=== PATIENT | male | born 1950 | race Caucasian/White ===

== ENCOUNTER 2019-05-25 09:54 | Inpatient (IN) ==
[2019-05-25] MEDS ORDERED: Nitroglycerin 0.4 MG TAB.SUBL SL PRN (10:11)
[2019-05-25] MEDS ORDERED: Aspirin 81 MG TAB.CHEW PO ONE (10:11)
--- NOTE | 2019-05-25 10:29 | Emergency Department Note ---
Disposition Clinical Impression: Atypical chest pain Acute pancreatitis Qualifiers: Pancreatitis type: biliary Acute pancreatitis complication: unspecified Qualified Code(s): K85.10 - Biliary acute pancreatitis without necrosis or infection Cholelithiasis NOS Qualifiers: Cholelithiasis location: gallbladder Cholecystitis presence: without cholecystitis Disposition: Admitted As Inpatient Condition: Good Time of Disposition: 13:00 Chest Pain HPI - General Chief Complaint: ED Chest Pain Stated Complaint: CP Time Seen by Provider: 05/25/19 10:05 Source: patient Limitations: no limitations - History of Present Illness HPI Narrative: This is a 68-year-old gentleman who presents to the [facility] chest pain center this morning at 4:30 AM. Patient describes subxiphoid/midsternal chest tightness, radiating to his back. Associated symptoms include nausea and dyspnea. He denies abdominal pain per se, even though he points to subxiphoid area. He denies any vomiting. The patient states that he has had symptoms intermittently for the past 3 days. Symptoms resolved yesterday and then recurred this morning around 4:30. There are no obvious aggravating or relieving factors. Duration: intermittent, gradually worsening Onset: during rest Severity scale (1-10): 10 Pain Radiation: back Improves with: nothing Worsens with: nothing Associated symptoms: Reports: nausea, dyspnea - Related Data Home Medications Medication Instructions Recorded Confirmed hydroCHLOROthiazide 25 mg PO DAILY 11/14/16 05/25/19 [Hydrochlorothiazide] Aspirin [Lo-Dose Aspirin EC] 81 mg PO DAILY 05/25/19 05/25/19 Tamsulosin HCl [Flomax] 0.4 mg PO DAILY 05/25/19 05/25/19 Turmeric 400 mg PO DAILY 05/25/19 05/25/19 Previous Rx's Medication Instructions Recorded EPINEPHrine [Epipen] 0.3 mg IM ONCE PRN #1 kit 02/24/17 Allergies Allergy/AdvReac Type Severity Reaction Status Date / Time No Known Allergies Allergy Verified 05/25/19 11:50 Constitutional: Denies: fever, chills, weakness, weight change Eyes: Denies: eye pain, eye discharge, vision change ENT ED: Denies: ear pain, throat pain, dental pain, hearing loss, epistaxis, congestion, dysphagia Cardiovascular: Reports: chest pain. Denies: palpitations, dyspnea on exertion, edema, syncope Respiratory: Denies: cough, dyspnea, wheezes, hemoptysis, stridor Gastrointestinal: Reports: abdominal pain (Subxiphoid pain), nausea. Denies: vomiting, diarrhea, constipation, hematemesis, melena, hematochezia Genitourinary: Denies: urgency, dysuria, frequency, hematuria Musculoskeletal: Denies: back pain, neck pain, arthralgia, myalgia Integumentary: Denies: rash, abrasion, lesions Neurological: Denies: headache, weakness, numbness, paresthesias, confusion, abnormal gait, vertigo Psychiatric: Denies: anxiety, depression, suicidal thoughts, homicidal thoughts, auditory hallucinations, visual hallucinations Endocrine: Denies: fatigue Hematological/Lymphatic: Denies: easy bleeding, easy bruising Allergic/Immunologic: Denies: facial swelling, urticaria Chest Pain PMH - Past Medical History Medical history: Reports: hypertension Surgical history: Reports: non-contributory - Social History Smoking Status: Never smoker Alcohol use: Reports: none Drug use: Reports: none Physical Exam - General Limitations: no limitations General appearance: alert, in distress - Head Head exam: atraumatic, normocephalic, normal inspection - Eye Eye exam: Present: normal appearance, PERRL, EOMI - Expanded Eye Exam Pupils: Left: reactive - ENT ENT exam: normal exam, normal oropharynx, mucous membranes moist - Expanded ENT Exam External ear exam: Present: normal external inspection Mouth exam: Present: normal external inspection Teeth exam: Present: normal inspection Throat exam: Present: normal inspection - Neck Neck exam: Present: normal inspection, full ROM, trachea midline - Chest Chest inspection: Present: normal inspection, symmetric chest wall rise, other (Slight Midsternal/subxiphoid tenderness on exam.) - Respiratory Respiratory exam: Present: normal lung sounds bilaterally - Cardiovascular Cardiovascular exam: Present: regular rate, normal rhythm, normal heart sounds - Abdominal Exam Abdominal exam: Present: soft, Non-Tender, tenderness. Absent: distention, guarding, rebound, rigidity Abdominal tenderness: Present: mild (There is slight subxiphoid tenderness. No guarding or rebound.) - Extremities Exam Extremities exam: Present: normal inspection, full ROM. Absent: tenderness, ped al edema - Expanded Upper Extremity Exam Shoulder exam: Present: normal inspection, full ROM Arm exam: Present: normal inspection, full ROM Elbow exam: Present: normal inspection, full ROM Forearm/Wrist exam: Present: normal inspection, full ROM Hand exam: Present: normal inspection, full ROM Vascular exam: Normal: capillary refill, radial pulse - Expanded Lower Extremity Exam Hip/Pelvis exam: Present: normal inspection, full ROM Upper leg exam: Present: normal inspection, full ROM Knee exam: Present: normal inspection, full ROM Lower leg exam: Present: normal inspection, full ROM Ankle exam: Present: normal inspection, full ROM Foot/toe exam: Present: normal inspection, full ROM Neurovascular/Tendon exam: Absent: motor deficit, sensory deficit, tendon deficit - Back Exam Back exam: Present: normal inspection, full ROM. Absent: tenderness - Neurological Exam Neurological exam: Present: alert, oriented X3 - Expanded Neurological Exam Patient oriented to: Present: person, place, time Coma Scale Eye Opening: Spontaneous Coma Scale Motor Response: Obeys Commands Coma Scale Verbal Response: Oriented Coma Scale Total: 15 - Psychiatric Psychiatric exam: Present: normal affect, normal mood - Skin Skin exam: Present: warm, dry, intact, normal color Course Vital Signs Temperature 98.4 F 05/25/19 10:00 Pulse Rate 90 05/25/19 10:00 Respiratory Rate 22 05/25/19 10:00 Blood Pressure 192/115 05/25/19 10:00 O2 Sat by Pulse Oximetry 98 05/25/19 10:00 Temperature 98.4 F 05/25/19 10:00 Pulse Rate 106 05/25/19 11:14 Respiratory Rate 28 05/25/19 11:14 Blood Pressure 118/81 05/25/19 11:14 O2 Sat by Pulse Oximetry 97 05/25/19 11:14 Oxygen Delivery Oxygen Delivery Room Air Chest Pain - MDM Narrative Medical decision making narrative: Differential diagnoses includes atypical chest through the container syndrome from inferior ischemia versus pancreatitis versus bowel obstruction versus gallbladder disease vs gastritis. AAA or dissection is less likely. Blood pressures taken in both arms essentially the same. We get abdominal series. Recheck basic labs including cardiac enzymes. EKG shows normal sinus rhythm at 89 bpm. Normal axis. Normal intervals. No acute injury pattern. 1037 Patient reevaluated. Pain is unchanged with nitroglycerin. Actually got slight ly worse. We will give morphine and the GI cocktail. 1105 Patient's complains of significant pain. He is now holding his epigastrium. Repeat EKG shows no acute injury pattern. X-rays are not impressive. I will get a CTA to rule out dissection versus AAA given the fact that this patient continues to have significant pain. He is screaming in the room. Will give Dilaudid. 1120 The patient's labs are reviewed. Lab is consistent with acute pancreatitis. LFTs are also elevated. I now have the reason for his pain. Consequent, I do not think this patient has a dissection or AAA. We will cancel CTA. Will get ultrasound of his gallbladder due to pancreatitis and elevated LFTs. We will keep him nothing by mouth. 1305 Patient's care discussed with the hospitalist. We will admit. Ultrasound is consistent with cholelithiasis but no evidence of cholecystitis. Patient is doing better. - Lab Data Result diagrams: 05/25/19 10:10 05/25/19 10:10 Lab Results 05/25/19 05/25/19 05/25/19 Range/Units 10:10 10:10 10:10 WBC 8.2 (4.3-11.1) K/mcL RBC 5.76 H (4.19-5.50) M/mcL Hgb 16.7 (12.9-16.9) g/dL Hct 49.5 (37.5-50.1) % MCV 85.9 (83.0-100.0) fL MCH 29.0 (28.0-33.3) pg MCHC 33.7 (31.6-35.5) g/dL RDW 13.7 (11.5-14.5) % Plt Count 102 L (140-400) K/mcL MPV 11.6 (9.4-12.4) fL Immature Gran % 0.2 (0-4) % Seg Neutrophils % 77.4 % Lymphocytes % 15.2 % Monocytes % 5.8 % Eosinophils % 0.9 % Basophils % 0.5 % Neutrophils # 6.3 (1.6-8.9) K/mcL Lymphocytes # 1.2 (0.6-4.6) K/mcL Monocytes # 0.5 (0.0-1.3) K/mcL Eosinophils # 0.1 (0.0-0.6) K/mcL Basophils # 0.0 (0.0-0.2) K/mcL PT 12.6 H (9.4-12.1) Seconds INR 1.1 APTT 28.6 (26.0-36.0) Seconds Sodium 139 (136-145) mEq/L Potassium 3.5 (3.5-5.1) mEq/L Chloride 102 (98-107) mEq/L Carbon Dioxide 26 (23-29) mEq/L BUN 18 (8-23) mg/dL Creatinine 1.35 H (0.70-1.30) mg/dL Est GFR ( Amer) > 60 (> 60) Est GFR (Non-Af Amer) 53 L (> 60) BUN/Creatinine Ratio 13 (6-26) Glucose 168 H (70-105) mg/dL Calculated Osmolality 294 (280-300) Calcium 9.3 (8.6-10.3) mg/dL Total Bilirubin 3.8 H (0.3-1.0) mg/dL Direct Bilirubin 2.5 H (0.0-0.2) mg/dL Indirect Bilirubin 1.3 H (0.0-1.2) mg/dL AST 238 H (13-39) Units/L ALT 181 H (7-52) Units/L Alkaline Phosphatase 84 (34-104) Units/L Troponin I < 0.03 (< 0.04) ng/mL Serum Total Protein 7.4 (6.4-8.9) g/dL Albumin 4.5 (3.5-5.7) g/dL Globulin 2.9 (2.4-3.5) g/dL Albumin/Globulin Ratio 1.6 (1.1-2.2) Lipase 1369 H (11-82) Units/L Heart Score - Score History: Slightly Suspicious EKG: Normal Age: Greater than 65 Risk Factors: 1-2 risk factors Troponin: Less than normal limit HEART Score Total: 3 Critical Care Time Critical Care Time: Yes Total Critical Care Time: 45 Attestation: Critical care time done for management and evaluation of this patient ruling out life-threatening conditions
[2019-05-25 10:33] LABS: INR 1.1; Prothrombin Time 12.6 Seconds (9.4-12.1)
[2019-05-25 10:36] LABS: Activated Partial Thrombo Time 28.6 Seconds (26.0-36.0)
[2019-05-25] MEDS ORDERED: Morphine Sulfate 2 MG/ML SYRINGE IVP ONE ×3 (10:37→19:12)
[2019-05-25] MEDS ORDERED: GI Cocktail 40 ML EACH PO ONE (10:37)
[2019-05-25 10:39] LABS: Basophils % 0.5 %; Eosinophils # 0.1 K/mcL (0.0-0.6); Eosinophils % 0.9 %; Hematocrit 49.5 % (37.5-50.1); Hemoglobin 16.7 g/dL (12.9-16.9); Immature Granulocytes % 0.2 % (0-4); Lymphocytes # 1.2 K/mcL (0.6-4.6); Lymphocytes % 15.2 %; Mean Corpuscular HGB Conc 33.7 g/dL (31.6-35.5); Mean Corpuscular Volume 85.9 fL (83.0-100.0); Mean Platelet Volume 11.6 fL (9.4-12.4); Monocytes # 0.5 K/mcL (0.0-1.3); Monocytes % 5.8 %; Neutrophils # 6.3 K/mcL (1.6-8.9); Platelet Count 102 K/mcL (140-400); Red Blood Count 5.76 M/mcL (4.19-5.50); Red Cell Distribution Width 13.7 % (11.5-14.5); Segmented Neutrophils % 77.4 %; White Blood Count 8.2 K/mcL (4.3-11.1)
[2019-05-25] MEDS ORDERED: Isovue-370 500 ML BOTTLE IVP ONE (11:04)
[2019-05-25] MEDS ORDERED: *HR* HYDROmorphone (PF) 1 MG/ML SYRINGE IVP ONE ×3 (11:07→19:40)
[2019-05-25 11:12] LABS: Alanine Aminotransferase 181 Units/L (7-52); Albumin 4.5 g/dL (3.5-5.7); Albumin/Globulin Ratio 1.6 (1.1-2.2); Alkaline Phosphatase 84 Units/L (34-104); Aspartate Amino Transferase 238 Units/L (13-39); BUN/Creatinine Ratio 13 (6-26); Bilirubin,Direct 2.5 mg/dL (0.0-0.2); Bilirubin,Indirect 1.3 mg/dL (0.0-1.2); Bilirubin,Total 3.8 mg/dL (0.3-1.0); Blood Urea Nitrogen 18 mg/dL (8-23); Calcium 9.3 mg/dL (8.6-10.3); Carbon Dioxide 26 mEq/L (23-29); Chloride 102 mEq/L (98-107); Globulin 2.9 g/dL (2.4-3.5); Glucose 168 mg/dL (70-105); Lipase 1369 Units/L (11-82); Osmolality,Calculated 294 (280-300); Potassium 3.5 mEq/L (3.5-5.1); Sodium 139 mEq/L (136-145); Total Protein 7.4 g/dL (6.4-8.9); Troponin I < 0.03 ng/mL (< 0.04); eGFR For African Americans > 60 (> 60); eGFR For Non-African Americans 53 (> 60)
[2019-05-25] MEDS ORDERED: 0.9 % Sodium Chloride 1,000 ML IVC ONE (11:23)
[2019-05-25] MEDS: 0.9 % Sodium Chloride 1,000 ML IVC SCH ×2 (13:48→23:59)
[2019-05-25] MEDS ORDERED: Naloxone 0.4 MG/ML INJ IVP PRN (14:33)
--- NOTE | 2019-05-25 14:35 | Internal Med History&Physical ---
Date of Encounter: 05/25/19 Time of Encounter: 14:15 Internal Medicine - H&P: HPI Chief complaint: abdominal pain Admitted From: Emergency Dept Plans for Post Hospital Care: Home History of present illness: Mr. Lyons is a 68 year old male with hx of HTN presented to ED with abdominal pain. He has been found to have gallstone pancreatitis Mr Lyons began to have abdominal discomfort on Tuesday. Symptoms improved and then recurred worse this AM. He came to ED and has been found to have gallstone pancreatitis. He has no prior hx. Denies alcohol use. No nausea or vomiting. At this time he is having significant pain in his abdomen. MRCP pending. Past Med Surg Social Fam HX - Past Medical History Medical history: hypertension - Past Surgical History Surgical History: non-contributory - Social History Smoking Status: Never smoker Smokeless Tobacco Status: No Alcohol use: none Drug use: none - Family History Mother Hx Family Autoimmune Disorders: (lymphoma) Internal Medicine - H&P: Meds hydroCHLOROthiazide [Hydrochlorothiazide] 25 mg PO DAILY 11/14/16 [History] EPINEPHrine [Epipen] 0.3 mg IM ONCE PRN #1 kit 02/24/17 [Rx] Aspirin [Lo-Dose Aspirin EC] 81 mg PO DAILY 05/25/19 [History] Tamsulosin HCl [Flomax] 0.4 mg PO DAILY 05/25/19 [History] Turmeric 400 mg PO DAILY 05/25/19 [History] Allergy/AdvReac Type Severity Reaction Status Date / Time No Known Allergies Allergy Verified 05/25/19 11:50 All Systems PM: A 10-system review of systems was performed and is negative for pertinent findings except as documented above in the HPI. - Constitutional Constitutional: no fatigue, no lethargy - EENT Eyes: no diplopia, no loss of vision Nose, mouth and throat: dry mouth, no sinus pain - Cardiovascular Cardiovascular ROS IM: chest pain, no dyspnea, no dyspnea on exertion - Respiratory Respiratory: no dyspnea, no dyspnea on exertion, no wheezing - Gastrointestinal Gastrointestinal: abdominal pain, no nausea, no vomiting - Genitourinary Genitourinary ROS male: no dysuria, no urinary frequency - Musculoskeletal Musculoskeletal ROS IM: no arthralgias, no muscle weakness - Integumentary Integumentary IM: no rash - Neurological Neurological ROS: no confusion, no tingling - Endocrine Endocrine IM: no excessive sweating - Hematologic/Lymphatic Hematologic/Lymphatic: no easy bleeding - Allergic/Immunologic Allergic/Immunologic: no itchy eyes - Constitutional Vitals: Temp Pulse Resp BP Pulse Ox 98.4 F 106 28 118/81 97 05/25/19 10:00 05/25/19 11:14 05/25/19 11:14 05/25/19 11:14 05/25/19 11:14 General appearance: Present: A&O X 3 Exam: See below - Head Head exam: Present: atraumatic, normocephalic - Eye Eye exam: Present: EOMI, conjuntiva pink - ENT ENT exam: Present: mucous membranes dry - Neck Neck exam general surgery: Present: supple - Respiratory Respiratory exam: Present: CTAB. Absent: rales, rhonchi, wheezes - Cardiovascular Cardiovascular exam: Present: tachycardia - GI/Abdominal GI/Abdominal exam: Present: soft, tenderness - Extremities Exam Extremities exam: Present: warm. Absent: pedal edema, tenderness - Neurological Exam Neurological exam: Present: alert, oriented X3, no focal deficits - Skin Skin exam: Present: dry, warm Internal Med - H&P Results - Labs CBC & Chem 7: 05/25/19 10:10 05/25/19 10:10 Labs: Short CBC 05/25/19 Range/Units 10:10 WBC 8.2 (4.3-11.1) K/mcL Hgb 16.7 (12.9-16.9) g/dL Hct 49.5 (37.5-50.1) % Plt Count 102 L (140-400) K/mcL Neutrophils # 6.3 (1.6-8.9) K/mcL BMP 05/25/19 10:10 Sodium 139 Potassium 3.5 Chloride 102 Carbon Dioxide 26 BUN 18 Creatinine 1.35 H Glucose 168 H Calcium 9.3 Cardiac Enzymes 05/25/19 Range/Units 10:10 Troponin I < 0.03 (< 0.04) ng/mL Liver Function 05/25/19 Range/Units 10:10 Total Bilirubin 3.8 H (0.3-1.0) mg/dL Direct Bilirubin 2.5 H (0.0-0.2) mg/dL AST 238 H (13-39) Units/L ALT 181 H (7-52) Units/L Alkaline Phosphatase 84 (34-104) Units/L Albumin 4.5 (3.5-5.7) g/dL - Impressions ITS Impressions Chest X-Ray 05/25/19 10:11 IMPRESSION: Minimal bibasilar atelectasis. Small infiltrate cannot be excluded. No bowel obstruction seen. D/ / 05/25/2019 11:16:43 Joni De La Cruz MD / asia Interpreting Provider: Joni De La Cruz MD Abdomen X-Ray 05/25/19 10:13 IMPRESSION: Minimal bibasilar atelectasis. Small infiltrate cannot be excluded. No bowel obstruction seen. D/ / 05/25/2019 11:16:43 Joni De La Cruz MD / asia Interpreting Provider: Joni De La Cruz MD Gallbladder Ultrasound 05/25/19 11:22 IMPRESSION: Fatty liver. Gallstones and sludge within the gallbladder. D/ / 05/25/2019 12:27:12 Joni De La Cruz MD / asia Interpreting Provider: Joni De La Cruz MD - Assessment and Plan (1) Acute gallstone pancreatitis Current Visit: Yes Status: Acute Assessment and plan: Pt presented with abdominal pain and found to have gallstone pancreatitis. Place in observation. IV pain control. MRCP to r/o CBD obstruction. Will plan surgery eval if does not need ERCP. IV fluids. NPO (2) Cholelithiasis NOS Current Visit: Yes Status: Chronic Assessment and plan: Plan surgical eval Qualifiers: Cholelithiasis location: gallbladder Cholecystitis presence: without cholecystitis Biliary obstruction: without biliary obstruction Qualified Code(s): K80.20 - Calculus of gallbladder without cholecystitis without obstruction (3) Hypertension Current Visit: Yes Status: Chronic Assessment and plan: Hold HCTZ for now. Qualifiers: Hypertension type: essential hypertension Qualified Code(s): I10 - Essential (primary) hypertension - Time Spent With Patient Total time spent is greater than 50% in coordination of care (as documented) at patient's floor/unit and/or counseling patient:
[2019-05-25] MEDS: Ondansetron 4 MG/2 ML VIAL IVP PRN (15:30)
[2019-05-25] MEDS ORDERED: Ketorolac 30 MG/ML VIAL IVP ONE (18:03)
[2019-05-25] MEDS ORDERED: Morphine PCA 30 MG/ 30 ML 30 ML PCA.VIAL IVC PRN (19:12)
[2019-05-25] MEDS ORDERED: Ketorolac 30 MG/ML VIAL IVP PRN (20:06)
[2019-05-25] MEDS: Morphine PCA 30 MG/ 30 ML 30 ML PCA.VIAL IVC PRN (20:28)
[2019-05-25] MEDS ORDERED: *HR* Promethazine 25 MG/ML VIAL IVP PRN (21:02)
[2019-05-25] MEDS ORDERED: *HR* Metoprolol 5 MG/5 ML VIAL IVP ONE (22:58)
[2019-05-26] MEDS: Ondansetron 4 MG/2 ML VIAL IVP PRN (00:01)
[2019-05-26] MEDS ORDERED: NIFEdipine 10 MG CAPSULE PO ONE (01:18)
[2019-05-26 07:14] LABS: Hematocrit 49.8 % (37.5-50.1); Hemoglobin 16.5 g/dL (12.9-16.9); Mean Corpuscular HGB Conc 33.1 g/dL (31.6-35.5); Mean Corpuscular Hemoglobin 28.5 pg (28.0-33.3); Mean Corpuscular Volume 86.2 fL (83.0-100.0); Mean Platelet Volume 11.1 fL (9.4-12.4); Monocytes # 0.7 K/mcL (0.0-1.3); Neutrophils # 9.9 K/mcL (1.6-8.9); Platelet Count 110 K/mcL (140-400); Red Blood Count 5.78 M/mcL (4.19-5.50); Red Cell Distribution Width 14.5 % (11.5-14.5); White Blood Count 11.2 K/mcL (4.3-11.1)
[2019-05-26 07:27] LABS: Albumin/Globulin Ratio 1.5 (1.1-2.2); Bilirubin,Total 8.3 mg/dL (0.3-1.0); Calcium 8.3 mg/dL (8.6-10.3); Globulin 2.6 g/dL (2.4-3.5); Magnesium 2.1 mg/dL (1.6-2.6); Potassium 4.1 mEq/L (3.5-5.1); Total Protein 6.6 g/dL (6.4-8.9)
[2019-05-26 08:47] LABS: Lymphocytes # 0.7 K/mcL (0.6-4.6)
[2019-05-26 08:49] LABS: Burr Cells 1+ (Not Present); Platelet Estimate Decreased (Normal); Smudge Cells Present (Not Present)
[2019-05-26] MEDS: 0.9 % Sodium Chloride 1,000 ML IVC SCH ×4 (08:59→22:40)
--- NOTE | 2019-05-26 09:32 | Internal Med Progress Note ---
Hospitalist Progress Note - Encounter Date of Encounter: 05/26/19 Time of Encounter: 09:19 - Subjective Interval History: Mr Lyons is currently admitted for acute gallstone pancreatitis. He remains high risk at this time. Mr Lyons continues to have a lot of pain. He is having difficulty taking a deep breath and his oxygen saturation has decreased. No fever. at bedside and said that he seemed better with [employer] last night. Oxygen did decrease though. Not urinating as much and it is very dark. - Exam Vitals: Temp Pulse Resp BP Pulse Ox 98.2 F 119 16 145/94 92 05/26/19 08:18 05/26/19 08:18 05/26/19 08:18 05/26/19 08:18 05/26/19 08:18 Exam: General: Alert and oriented. Continues uncomfortable due to pain. Skin: Normal color, no rash, H: Normocephalic. EENT: EOMI, Mucus membranes dry. Cardiovascular: Normal S1 & S2, tachycardic and regular. No murmur. Lungs: Decreased breath sounds. No wheeze. Abdomen: Firm. Bowel sounds heard. Tender in epigastric area. Extremities: No deformity, no edema Neurological: Normal cognition and motor skills. Pulses: radial pulses normal +2. Rest of the physical exam is non contributory - Assessment and Plan (1) Acute gallstone pancreatitis Current Visit: Yes Status: Acute Assessment and Plan: Pt presented with abdominal pain and found to have gallstone pancreatitis. Continues to have significant pain. LFTs about the same - bilirubin much higher today. CT abd/pelvis done. Continue NPO, fluids, pain control (2) Cholelithiasis NOS Current Visit: Yes Status: Chronic Assessment and Plan: Surgery consulted today. (3) Hypertension Current Visit: Yes Status: Chronic Assessment and Plan: Uncontrolled. Start nitropaste and PRN hydralazine. - Time Spent with Patient Total time spent is greater than 50% in coordination of care (as documented) at patient's floor/unit and/or counseling patient: Internal Medicine: Result - Labs CBC & Chem 7: 05/26/19 06:25 05/26/19 06:25 Labs: Short CBC 05/25/19 05/26/19 Range/Units 10:10 06:25 WBC 8.2 11.2 H (4.3-11.1) K/mcL Hgb 16.7 16.5 (12.9-16.9) g/dL Hct 49.5 49.8 (37.5-50.1) % Plt Count 102 L 110 L (140-400) K/mcL Neutrophils # 6.3 9.9 H (1.6-8.9) K/mcL BMP 05/25/19 05/26/19 10:10 06:25 Sodium 139 140 Potassium 3.5 4.1 Chloride 102 102 Carbon Dioxide 26 26 BUN 18 31 H Creatinine 1.35 H 1.64 H Glucose 168 H 170 H Calcium 9.3 8.3 L Cardiac Enzymes 05/25/19 Range/Units 10:10 Troponin I < 0.03 (< 0.04) ng/mL Liver Function 05/25/19 05/26/19 Range/Units 10:10 06:25 Total Bilirubin 3.8 H 8.3 H (0.3-1.0) mg/dL Direct Bilirubin 2.5 H (0.0-0.2) mg/dL AST 238 H 133 H (13-39) Units/L ALT 181 H 200 H (7-52) Units/L Alkaline Phosphatase 84 83 (34-104) Units/L Albumin 4.5 4.0 (3.5-5.7) g/dL - ABG Interpretation ABG results: PT/INR, D-dimer PT 12.6 Seconds (9.4-12.1) H 05/25/19 10:10 - Impressions Impressions Chest X-Ray 05/25/19 10:11 IMPRESSION: Minimal bibasilar atelectasis. Small infiltrate cannot be excluded. No bowel obstruction seen. D/ / 05/25/2019 11:16:43 Joni De La Cruz MD / asia Interpreting Provider: Joni De La Cruz MD Abdomen X-Ray 05/25/19 10:13 IMPRESSION: Minimal bibasilar atelectasis. Small infiltrate cannot be excluded. No bowel obstruction seen. D/ / 05/25/2019 11:16:43 Joni De La Cruz MD / asia Interpreting Provider: Joni De La Cruz MD Gallbladder Ultrasound 05/25/19 11:22 IMPRESSION: Fatty liver. Gallstones and sludge within the gallbladder. D/ / 05/25/2019 12:27:12 Joni De La Cruz MD / asia Interpreting Provider: Joni De La Cruz MD Abdomen MRI 05/25/19 14:30 IMPRESSION: 1. Extensive peripancreatic edema and free fluid in the pararenal spaces consistent with the history of acute pancreatitis. No discrete localized peripancreatic fluid collection. Evaluation for pancreatic necrosis is not accomplished in the absence of IV contrast. 2. Patchy hepatic steatosis. 3. No intra or extrahepatic biliary ductal dilatation. There is layering sludge in multiple tiny gallstones noted in the gallbladder. A tiny filling defect in the distal CBD could potentially be a tiny stone but there is some limitation of evaluation due to motion degradation of the MRCP images. D/ / Eris Markham MD / Eris Markham MD Interpreting Provider: Eris Markham MD Consult Discharge Plan - Plan Referrals: Jay Akbar DO [Primary Care Provider] - (2) Cholelithiasis NOS Qualifiers: Cholelithiasis location: gallbladder Cholecystitis presence: without cholecystitis Biliary obstruction: without biliary obstruction Qualified Code(s): K80.20 - Calculus of gallbladder without cholecystitis without obstruction (3) Hypertension Qualifiers: Hypertension type: essential hypertension Qualified Code(s): I10 - Essential (primary) hypertension
[2019-05-26] MEDS: Nitroglycerin 1 INCH/GM PACKET TP SCH ×3 (10:03→15:58)
[2019-05-26] MEDS: Morphine PCA 30 MG/ 30 ML 30 ML PCA.VIAL IVC PRN (12:23)
--- NOTE | 2019-05-26 12:56 | AcuteCare Surgery Consult Note ---
Date of Encounter: 05/26/19 Time of Encounter: 12:47 Assessment and Plan (1) Acute gallstone pancreatitis Current Visit: Yes Status: Acute 68M with gallstone pancreatitis; HDS likely with choledocholithiasis as t bili is extremely elevated trend t bili activity a tolerated NPO, bowel rest IVF CT scan to eval for possible necrosis will cont to follow needs ERCP or transfer to [facility] History of Present Illness Consult date: 05/26/19 Reason for consult: abdominal pain History of present illness: 68M PMH significant for HTN, BPH who presents with gallstone pancreatitis. The patient has had 2-3 days of worsening abdominal pain localized to the epigastric region. The pain is worse when leaning forward and better with reclined. No associated nausea, vomiting, but the patient does report PO intolerance/early satiety. He is having normal bowel function, no fevers, chills, chest pain, nor shortness of breath. He does have an alcohol history, but it is not extensive nor does he recall any significant drinking prior to the abdominal pain. The patient does report that eating his cheese dip was the precipitating event to his abdominal pain. the pain rates an 8/10. Because his symptoms continued to get worse he presented for evaluation. Upon arrival an MRI was obtained which demonstrated edema of the pancreas. That in combination with an elevated lipase was all consistent with acute pancreatitis. Of note she was found to have gallstones, but no evidence of acute cholecystitis. Past Med Surg Social Fam HX - Past Medical History Medical history: hypertension - Past Surgical History Surgical History: non-contributory, herniorrhaphy - Social History Smoking Status: Never smoker Smokeless Tobacco Status: No Alcohol use: occasionally Drug use: none - Family History Mother Hx Family Autoimmune Disorders: (lymphoma) Medications and Allergies hydroCHLOROthiazide [Hydrochlorothiazide] 25 mg PO DAILY 11/14/16 [History] EPINEPHrine [Epipen] 0.3 mg IM ONCE PRN #1 kit 02/24/17 [Rx] Aspirin [Lo-Dose Aspirin EC] 81 mg PO DAILY 05/25/19 [History] Tamsulosin HCl [Flomax] 0.4 mg PO DAILY 05/25/19 [History] Turmeric 400 mg PO DAILY 05/25/19 [History] Allergy/AdvReac Type Severity Reaction Status Date / Time No Known Allergies Allergy Verified 05/25/19 11:50 Review of Systems All systems PM: 12 point ROS negative besides HPI findings General Surgery Exam Initial Vital Signs Temp Pulse Resp BP Pulse Ox 98.4 F 90 22 192/115 98 05/25/19 10:00 05/25/19 10:00 05/25/19 10:00 05/25/19 10:00 05/25/19 10:00 - General physical appearance no distress - Eyes other (scleral icterus) - Respiratory normal expansion, normal respiratory effort - Cardiovascular Cardiovascular exam: Present: RRR - Abdomen Abdomen general surgery: Present: soft, tender (epigastric region) - Integumentary Integumentary general surgery: Present: warm and dry, no abnormal pigmentation - Neurologic Present: CN 2-12 grossly intact - Musculoskeletal Present: normal posture - Psychiatric Psychiatric general surgery: Present: A&Ox3 Exam Initial Vital Signs Temp Pulse Resp BP Pulse Ox 98.4 F 90 22 192/115 98 05/25/19 10:00 05/25/19 10:00 05/25/19 10:00 05/25/19 10:00 05/25/19 10:00 Results - Labs 05/26/19 06:25 05/26/19 06:25 Abnormal lab results WBC 11.2 K/mcL (4.3-11.1) H 05/26/19 06:25 RBC 5.78 M/mcL (4.19-5.50) H 05/26/19 06:25 Plt Count 110 K/mcL (140-400) L 05/26/19 06:25 Neutrophils # 9.9 K/mcL (1.6-8.9) H 05/26/19 06:25 Smudge Cells Present (Not Present) A 05/26/19 06:25 Platelet Estimate Decreased (Normal) L 05/26/19 06:25 Lindsay Cells 1+ (Not Present) A 05/26/19 06:25 PT 12.6 Seconds (9.4-12.1) H 05/25/19 10:10 BUN 31 mg/dL (8-23) H 05/26/19 06:25 Creatinine 1.64 mg/dL (0.70-1.30) H 05/26/19 06:25 Est GFR ( Amer) 51 (> 60) L 05/26/19 06:25 Est GFR (Non-Af Amer) 42 (> 60) L 05/26/19 06:25 Glucose 170 mg/dL (70-105) H 05/26/19 06:25 Calculated Osmolality 301 (280-300) H 05/26/19 06:25 Calcium 8.3 mg/dL (8.6-10.3) L 05/26/19 06:25 Total Bilirubin 8.3 mg/dL (0.3-1.0) H 05/26/19 06:25 Direct Bilirubin 2.5 mg/dL (0.0-0.2) H 05/25/19 10:10 Indirect Bilirubin 1.3 mg/dL (0.0-1.2) H 05/25/19 10:10 AST 133 Units/L (13-39) H 05/26/19 06:25 ALT 200 Units/L (7-52) H 05/26/19 06:25 Lipase 776 Units/L (11-82) H 05/26/19 10:00 Diabetes panel 05/26/19 Range/Units 06:25 Sodium 140 (136-145) mEq/L Potassium 4.1 (3.5-5.1) mEq/L Chloride 102 (98-107) mEq/L Carbon Dioxide 26 (23-29) mEq/L BUN 31 H (8-23) mg/dL Creatinine 1.64 H (0.70-1.30) mg/dL Glucose 170 H (70-105) mg/dL Calcium 8.3 L (8.6-10.3) mg/dL AST 133 H (13-39) Units/L ALT 200 H (7-52) Units/L Alkaline Phosphatase 83 (34-104) Units/L Albumin 4.0 (3.5-5.7) g/dL Calcium panel 05/26/19 Range/Units 06:25 Calcium 8.3 L (8.6-10.3) mg/dL Albumin 4.0 (3.5-5.7) g/dL Pituitary panel 05/26/19 Range/Units 06:25 Sodium 140 (136-145) mEq/L Potassium 4.1 (3.5-5.1) mEq/L Chloride 102 (98-107) mEq/L Carbon Dioxide 26 (23-29) mEq/L BUN 31 H (8-23) mg/dL Creatinine 1.64 H (0.70-1.30) mg/dL Glucose 170 H (70-105) mg/dL Calcium 8.3 L (8.6-10.3) mg/dL Adrenal panel 05/26/19 Range/Units 06:25 Sodium 140 (136-145) mEq/L Potassium 4.1 (3.5-5.1) mEq/L Chloride 102 (98-107) mEq/L Carbon Dioxide 26 (23-29) mEq/L BUN 31 H (8-23) mg/dL Creatinine 1.64 H (0.70-1.30) mg/dL Glucose 170 H (70-105) mg/dL Calcium 8.3 L (8.6-10.3) mg/dL Total Bilirubin 8.3 H (0.3-1.0) mg/dL AST 133 H (13-39) Units/L ALT 200 H (7-52) Units/L Alkaline Phosphatase 83 (34-104) Units/L Albumin 4.0 (3.5-5.7) g/dL All other labs normal. Consult Discharge Plan - Plan Referrals: Jay Akbar DO [Primary Care Provider] -
[2019-05-26 13:28] LABS: Bilirubin,Direct 6.4 mg/dL (0.0-0.2); Bilirubin,Indirect 2.3 mg/dL (0.0-1.2); Bilirubin,Total 8.7 mg/dL (0.3-1.0)
[2019-05-27] MEDS: 0.9 % Sodium Chloride 1,000 ML IVC SCH ×5 (00:13→22:43)
[2019-05-27 02:21] LABS: Basophils % 0.2 %; Eosinophils % 0.2 %; Hematocrit 45.8 % (37.5-50.1); Immature Granulocytes % 0.5 % (0-4); Lymphocytes # 0.7 K/mcL (0.6-4.6); Lymphocytes % 5.6 %; Mean Corpuscular HGB Conc 32.5 g/dL (31.6-35.5); Mean Corpuscular Hemoglobin 29.2 pg (28.0-33.3); Mean Corpuscular Volume 89.6 fL (83.0-100.0); Mean Platelet Volume 11.6 fL (9.4-12.4); Monocytes # 0.8 K/mcL (0.0-1.3); Monocytes % 6.8 %; Platelet Count 101 K/mcL (140-400); Red Blood Count 5.11 M/mcL (4.19-5.50); Red Cell Distribution Width 14.8 % (11.5-14.5); Segmented Neutrophils % 86.7 %; White Blood Count 12.2 K/mcL (4.3-11.1)
[2019-05-27 02:22] LABS: Hemoglobin 14.9 g/dL (12.9-16.9); Neutrophils # 10.6 K/mcL (1.6-8.9)
[2019-05-27 02:30] LABS: INR 1.5; Prothrombin Time 17.1 Seconds (9.4-12.1)
[2019-05-27 02:41] LABS: Albumin 3.6 g/dL (3.5-5.7); Albumin/Globulin Ratio 1.5 (1.1-2.2); Bilirubin,Total 7.7 mg/dL (0.3-1.0); Calcium 7.4 mg/dL (8.6-10.3); Globulin 2.4 g/dL (2.4-3.5); Magnesium 1.9 mg/dL (1.6-2.6); Potassium 4.1 mEq/L (3.5-5.1)
[2019-05-27 02:45] LABS: Platelet Estimate Decreased (Normal)
[2019-05-27] MEDS ORDERED: 0.9 % Sodium Chloride 1,000 ML IVC SCH (05:00)
[2019-05-27] MEDS: Nitroglycerin 1 INCH/GM PACKET TP SCH ×2 (06:00→12:14)
[2019-05-27] MEDS: Morphine PCA 30 MG/ 30 ML 30 ML PCA.VIAL IVC PRN ×2 (06:20→23:06)
[2019-05-27] MEDS: *HR* Metoprolol 5 MG/5 ML VIAL IVP PRN (14:31)
--- NOTE | 2019-05-27 15:12 | Internal Med Progress Note ---
Hospitalist Progress Note - Encounter Date of Encounter: 05/27/19 Time of Encounter: 12:10 - Subjective Interval History: Mr Lyons is currently admitted for acute gallstone pancreatitis. He remains high risk at this time. Mr Lyons is still having pain but overall a little better. Labs a little better today as well. Did not sleep well. Feels better with ortega in - was retaining urine. Having some issues with eyes- image "shifts" and speech thick from dry mouth. No CP. Still with dyspnea - worse from abdominal pain. No fever or chills. Heartrate has been elevated as well. - Exam Vitals: Temp Pulse Resp BP Pulse Ox 98.2 F 112 18 156/99 95 05/27/19 14:27 05/27/19 14:27 05/27/19 14:27 05/27/19 14:27 05/27/19 14:27 Exam: General: Alert and oriented. Uncomfortable from abdominal pain. Skin: Slight jaundice H: Normocephalic. EENT: EOMI, Mucus membranes dry. Cardiovascular: Normal S1 & S2, tachycardic and regular. No murmur. Lungs: Decreased breath sounds. No wheeze. No rales noted. Abdomen: Softer now. Bowel sounds heard. Tender in epigastric area and diffusely. Extremities: No deformity, no edema Neurological: Normal cognition and motor skills. Pulses: radial pulses normal +2. Rest of the physical exam is non contributory - Assessment and Plan (1) Acute gallstone pancreatitis Current Visit: Yes Status: Acute Assessment and Plan: Pt presented with abdominal pain and found to have gallstone pancreatitis. Slight improvement in LFTs today. Recheck tomorrow. Will have GI see formally tomorrow in regards to any further intervention needed. (2) Cholelithiasis NOS Current Visit: Yes Status: Chronic Assessment and Plan: Surgery in the future. (3) Hypertension Current Visit: Yes Status: Chronic Assessment and Plan: Uncontrolled. Currently nitropast. D/C hydralazine and start lopressor. (4) Acute renal failure Current Visit: Yes Status: Suspected Assessment and Plan: Pt with increased creatinine - slight worse today despite fluids. Continue IV fluids. Ortega today. - Time Spent with Patient Total time spent is greater than 50% in coordination of care (as documented) at patient's floor/unit and/or counseling patient: Internal Medicine: Result - Labs CBC & Chem 7: 05/27/19 01:18 05/27/19 01:18 Labs: Short CBC 05/27/19 Range/Units 01:18 WBC 12.2 H (4.3-11.1) K/mcL Hgb 14.9 D (12.9-16.9) g/dL Hct 45.8 (37.5-50.1) % Plt Count 101 L (140-400) K/mcL Neutrophils # 10.6 H (1.6-8.9) K/mcL BMP 05/27/19 01:18 Sodium 139 Potassium 4.1 Chloride 106 Carbon Dioxide 24 BUN 35 H Creatinine 1.66 H Glucose 151 H Calcium 7.4 L Liver Function 05/27/19 Range/Units 01:18 Total Bilirubin 7.7 H (0.3-1.0) mg/dL AST 78 H (13-39) Units/L ALT 145 H (7-52) Units/L Alkaline Phosphatase 80 (34-104) Units/L Albumin 3.6 (3.5-5.7) g/dL - ABG Interpretation ABG results: PT/INR, D-dimer PT 17.1 Seconds (9.4-12.1) H 05/27/19 01:18 - Impressions Impressions Abdomen/Pelvis CT 05/26/19 15:15 IMPRESSION: Findings compatible with acute pancreatitis. No focal fluid collections are identified at this time. The presence or absence of necrosis cannot be ascertained intravenous contrast. Cholelithiasis. Small bilateral pleural effusions with patchy bilateral lower lung airspace disease, atelectasis versus pneumonia versus aspiration. There is a moderate-sized hiatal hernia. Oral contrast is seen extending into the lower esophagus, raising the possibility of reflux. D/ / Kofi Jacobo MD / Kofi Jacobo MD Interpreting Provider: Kofi Jacobo MD - VTE Documentation of Mechanical Device: Intermittent pneumatic compression device Consult Discharge Plan - Plan Referrals: Jay Akbar DO [Primary Care Provider] - (2) Cholelithiasis NOS Qualifiers: Cholelithiasis location: gallbladder Cholecystitis presence: without cholecystitis Biliary obstruction: without biliary obstruction Qualified Code(s): K80.20 - Calculus of gallbladder without cholecystitis without obstruction (3) Hypertension Qualifiers: Hypertension type: essential hypertension Qualified Code(s): I10 - Essential (primary) hypertension (4) Acute renal failure Qualifiers: Acute renal failure type: with acute tubular necrosis Qualified Code(s): N17.0 - Acute kidney failure with tubular necrosis
--- NOTE | 2019-05-27 15:59 | AcuteCareSurgery Progress Note ---
Date of Encounter: 05/27/19 Time of Encounter: 15:54 - Assessment and Plan (1) Acute gallstone pancreatitis Current Visit: Yes Status: Acute 68M with gallstone pancreatitis; ayanna score - 4; patient with oxygen requirements (4L NC); t bili trending down; NPO, bowel rest trend t bili GI consult for possible evaluation of common bile duct slow down IVF if possible trend labs consider repeat CT if WBC continues to increase and patient does not improve clinically from pancreatitis will cont to follow Subjective Patient reports: no new complaints, afebrile Objective Vital Signs - Last 8 Hours Temp Pulse Resp BP Pulse Ox 05/27/19 14:27 98.2 F 112 18 156/99 95 05/27/19 12:06 97.8 F 112 16 153/91 95 05/27/19 08:12 93 Intake and Output 05/26/19 05/27/19 05/27/19 23:59 07:59 15:59 Intake Total 1120 / 3120 1999 / 2198 198 / 2198 Output Total 300 / 625 875 / 1775 900 / 1775 Balance 820 / 2495 1125 / 423 -702 / 423 Intake: IV Fluids 1000 / 3000 1999 / 2198 198 / 2198 0.9 % Sodium Chloride 1,000 ML 1000 / 2000 1999 219 198 / 2198 @ 50 mls/hr IVC .Q20H [facility] Rx#: [id number] Oral 120 / 120 Output: Urine 300 / 625 100 / 100 Straight Cath 775 / 775 Catheter 900 / 900 Urethral (Shirley) 900 / 900 Other: Blood Glucose* 147 150 118 - General physical appearance no distress - Respiratory normal expansion, normal respiratory effort - Cardiovascular Cardiovascular exam: Present: RRR - Abdomen Abdomen: Present: soft, distended, tender - Neurologic CN 2-12 grossly intact - Psychiatric oriented to time, oriented to person, oriented to place - Labs 05/27/19 01:18 05/27/19 01:18 Diabetes panel 05/27/19 Range/Units 01:18 Sodium 139 (136-145) mEq/L Potassium 4.1 (3.5-5.1) mEq/L Chloride 106 (98-107) mEq/L Carbon Dioxide 24 (23-29) mEq/L BUN 35 H (8-23) mg/dL Creatinine 1.66 H (0.70-1.30) mg/dL Glucose 151 H (70-105) mg/dL Calcium 7.4 L (8.6-10.3) mg/dL AST 78 H (13-39) Units/L ALT 145 H (7-52) Units/L Alkaline Phosphatase 80 (34-104) Units/L Albumin 3.6 (3.5-5.7) g/dL Calcium panel 05/27/19 Range/Units 01:18 Calcium 7.4 L (8.6-10.3) mg/dL Albumin 3.6 (3.5-5.7) g/dL Pituitary panel 05/27/19 Range/Units 01:18 Sodium 139 (136-145) mEq/L Potassium 4.1 (3.5-5.1) mEq/L Chloride 106 (98-107) mEq/L Carbon Dioxide 24 (23-29) mEq/L BUN 35 H (8-23) mg/dL Creatinine 1.66 H (0.70-1.30) mg/dL Glucose 151 H (70-105) mg/dL Calcium 7.4 L (8.6-10.3) mg/dL Adrenal panel 05/27/19 Range/Units 01:18 Sodium 139 (136-145) mEq/L Potassium 4.1 (3.5-5.1) mEq/L Chloride 106 (98-107) mEq/L Carbon Dioxide 24 (23-29) mEq/L BUN 35 H (8-23) mg/dL Creatinine 1.66 H (0.70-1.30) mg/dL Glucose 151 H (70-105) mg/dL Calcium 7.4 L (8.6-10.3) mg/dL Total Bilirubin 7.7 H (0.3-1.0) mg/dL AST 78 H (13-39) Units/L ALT 145 H (7-52) Units/L Alkaline Phosphatase 80 (34-104) Units/L Albumin 3.6 (3.5-5.7) g/dL - VTE Documentation of Mechanical Device: Intermittent pneumatic compression device Consult Discharge Plan - Plan Referrals: Jay Akbar DO [Primary Care Provider] -
[2019-05-27] MEDS: Ondansetron 4 MG/2 ML VIAL IVP PRN (17:13)
[2019-05-28 04:41] LABS: Hematocrit 41.1 % (37.5-50.1); Hemoglobin 13.2 g/dL (12.9-16.9); Immature Platelets 6.4 % (1.1-6.1); Mean Corpuscular HGB Conc 32.1 g/dL (31.6-35.5); Mean Corpuscular Hemoglobin 28.6 pg (28.0-33.3); Mean Platelet Volume 11.2 fL (9.4-12.4); Red Blood Count 4.62 M/mcL (4.19-5.50); Red Cell Distribution Width 15.1 % (11.5-14.5); White Blood Count 9.6 K/mcL (4.3-11.1)
[2019-05-28] MEDS: Nitroglycerin 1 INCH/GM PACKET TP SCH ×2 (04:52→11:42)
[2019-05-28 04:56] LABS: Alanine Aminotransferase 81 Units/L (7-52); Albumin 3.1 g/dL (3.5-5.7); Albumin/Globulin Ratio 1.2 (1.1-2.2); Alkaline Phosphatase 66 Units/L (34-104); Aspartate Amino Transferase 37 Units/L (13-39); BUN/Creatinine Ratio 23 (6-26); Bilirubin,Total 4.8 mg/dL (0.3-1.0); Blood Urea Nitrogen 28 mg/dL (8-23); Calcium 7.6 mg/dL (8.6-10.3); Carbon Dioxide 24 mEq/L (23-29); Chloride 108 mEq/L (98-107); Globulin 2.5 g/dL (2.4-3.5); Glucose 113 mg/dL (70-105); Lipase 67 Units/L (11-82); Osmolality,Calculated 296 (280-300); Sodium 140 mEq/L (136-145); Total Protein 5.6 g/dL (6.4-8.9); eGFR For African Americans > 60 (> 60); eGFR For Non-African Americans > 60 (> 60)
[2019-05-28] MEDS: 0.9 % Sodium Chloride 1,000 ML IVC SCH ×5 (05:30→22:31)
[2019-05-28] MEDS: *HR* Metoprolol 5 MG/5 ML VIAL IVP PRN ×2 (08:21→14:21)
--- NOTE | 2019-05-28 09:13 | AcuteCareSurgery Progress Note ---
Date of Encounter: 05/28/19 Time of Encounter: 07:30 - Assessment and Plan (1) Acute gallstone pancreatitis Current Visit: Yes Status: Acute Pt diagnosis of acute gallstone pancreatitis is discussed. Laparoscopic Cholecystectomy with IOC is recommended. Procedure for the surgery, risks and benefits are discussed in detail. Possible known complications for Laparoscopic Cholecystectomy IOC are bleeding, infection, bile duct injury, bile leak, small intestine or stomach injury, stroke, DVT/PE, NE or . Pt understands these risks, which in this case are low-moderate. Pt wishes to proceed with surgery as soon as possible. Informed consent is obtained. Pt condition is stable. Surgery is scheduled. (2) Hypertension Current Visit: Yes Status: Chronic Qualifiers: Hypertension type: essential hypertension Qualified Code(s): I10 - Essential (primary) hypertension Subjective Patient reports: no new complaints, feels better, still having pain, pain is less, tolerating liquids well (ice chips), flatus, afebrile Objective Vital Signs - Last 8 Hours Temp Pulse Resp BP Pulse Ox 05/28/19 07:15 97.4 F L 108 20 164/95 95 05/28/19 03:59 97.9 F 108 14 136/90 94 Intake and Output 05/27/19 05/28/19 05/28/19 23:59 07:59 15:59 Intake Total 1999 / 4198 1000 / 1000 Output Total 825 / 2600 950 / 950 Balance 1175 / 1598 50 / 50 Intake: IV Fluids 1999 4198 1000 / 1000 0.9 % Sodium Chloride 1,000 ML 1999 / 1999 1000 / 1000 @ 150 mls/hr IVC .Q6H40M [facility] Rx #:[id number] Output: Catheter 825 / 1725 950 / 950 Urethral (Shirley) 150 / 1050 Other: Weight 106.5 kg Blood Glucose* 98 101 Patient Weight 05/28/19 23:59 Weight 106.5 kg - General physical appearance no distress, moderate pain, jaundice - Eyes PERRL, normal ocular movement, icteric - ENT normal mucosa, no congestion - Neck Neck exam: trachea midline, no venous distension - Respiratory normal respiratory effort, clear to auscultation - Cardiovascular Cardiovascular exam: Present: RRR, JVD - Abdomen Abdomen: Present: bowel sounds present, tender, guarding. Absent: rebound Abdominal Tenderness: RUQ - Integumentary no rash - Neurologic CN 2-12 grossly intact, normal coordination - Musculoskeletal normal posture - Psychiatric oriented to time, oriented to person, oriented to place - Labs 05/28/19 04:11 05/28/19 04:11 Diabetes panel 05/28/19 Range/Units 04:11 Sodium 140 (136-145) mEq/L Potassium 4.0 (3.5-5.1) mEq/L Chloride 108 H (98-107) mEq/L Carbon Dioxide 24 (23-29) mEq/L BUN 28 H (8-23) mg/dL Creatinine 1.20 (0.70-1.30) mg/dL Glucose 113 H (70-105) mg/dL Calcium 7.6 L (8.6-10.3) mg/dL AST 37 (13-39) Units/L ALT 81 H (7-52) Units/L Alkaline Phosphatase 66 (34-104) Units/L Albumin 3.1 L (3.5-5.7) g/dL Calcium panel 05/28/19 Range/Units 04:11 Calcium 7.6 L (8.6-10.3) mg/dL Albumin 3.1 L (3.5-5.7) g/dL Pituitary panel 05/28/19 Range/Units 04:11 Sodium 140 (136-145) mEq/L Potassium 4.0 (3.5-5.1) mEq/L Chloride 108 H (98-107) mEq/L Carbon Dioxide 24 (23-29) mEq/L BUN 28 H (8-23) mg/dL Creatinine 1.20 (0.70-1.30) mg/dL Glucose 113 H (70-105) mg/dL Calcium 7.6 L (8.6-10.3) mg/dL Adrenal panel 05/28/19 Range/Units 04:11 Sodium 140 (136-145) mEq/L Potassium 4.0 (3.5-5.1) mEq/L Chloride 108 H (98-107) mEq/L Carbon Dioxide 24 (23-29) mEq/L BUN 28 H (8-23) mg/dL Creatinine 1.20 (0.70-1.30) mg/dL Glucose 113 H (70-105) mg/dL Calcium 7.6 L (8.6-10.3) mg/dL Total Bilirubin 4.8 H (0.3-1.0) mg/dL AST 37 (13-39) Units/L ALT 81 H (7-52) Units/L Alkaline Phosphatase 66 (34-104) Units/L Albumin 3.1 L (3.5-5.7) g/dL - VTE Documentation of Mechanical Device: Intermittent pneumatic compression device Consult Discharge Plan - Plan Referrals: Jay Akbar DO [Primary Care Provider] -
--- NOTE | 2019-05-28 10:48 | Internal Med Progress Note ---
<Herbert Bryant - Last Filed: 05/28/19 14:09> Hospitalist Progress Note - Encounter Date of Encounter: 05/28/19 - Exam Vitals: Temp Pulse Resp BP Pulse Ox 98.2 F 105 20 163/96 95 05/28/19 11:24 05/28/19 11:24 05/28/19 11:24 05/28/19 11:24 05/28/19 11:24 - Assessment and Plan (1) Acute gallstone pancreatitis Current Visit: Yes Status: Acute (2) Cholelithiasis NOS Current Visit: Yes Status: Chronic (3) Hypertension Current Visit: Yes Status: Chronic (4) Acute renal failure Current Visit: Yes Status: Suspected - Time Spent with Patient Total time spent is greater than 50% in coordination of care (as documented) at patient's floor/unit and/or counseling patient: Internal Medicine: Result - Labs CBC & Chem 7: 05/28/19 04:11 05/28/19 04:11 Labs: Short CBC 05/28/19 Range/Units 04:11 WBC 9.6 (4.3-11.1) K/mcL Hgb 13.2 D (12.9-16.9) g/dL Hct 41.1 (37.5-50.1) % Plt Count 90 L (140-400) K/mcL BMP 05/28/19 04:11 Sodium 140 Potassium 4.0 Chloride 108 H Carbon Dioxide 24 BUN 28 H Creatinine 1.20 Glucose 113 H Calcium 7.6 L Liver Function 05/28/19 Range/Units 04:11 Total Bilirubin 4.8 H (0.3-1.0) mg/dL AST 37 (13-39) Units/L ALT 81 H (7-52) Units/L Alkaline Phosphatase 66 (34-104) Units/L Albumin 3.1 L (3.5-5.7) g/dL - ABG Interpretation ABG results: PT/INR, D-dimer PT 17.1 Seconds (9.4-12.1) H 05/27/19 01:18 Consult Discharge Plan - Plan Referrals: Jay Akbar DO [Primary Care Provider] - - Attending Attestation The history, physical exam, and medical decision making was performed by the medical student either while I was physically present and actively involved or I personally re-performed the exam and medical decision making. I have verified the accuracy of the medical student's documentation with regards to the history, physical exam findings, and medical decision making on 05/28/19. Mr Lyons is currently admitted for acute gallstone pancreatitis. He remains moderate to high risk due to potential for worsening clinical status. Mr Lyons has less pain today. His lipase is normal. Still requiring oxygen. Creatinine has normalized. To go to OR today. Exam: Alert. Mod distress. NC. Mucus membranes dry. EOMI. Neck supple. Heart tachy. No wheeze. Abd distended and soft. Some edema. Moves all extremities. No rash. I/P 1. Acute gallstone pancreatitis - improving. 2. Cholelithiasis - OR today 3. HTN Further diagnoses and plan as above. <Everton Avery - Last Filed: 05/28/19 14:58> Hospitalist Progress Note - Encounter Date of Encounter: 05/28/19 Time of Encounter: 10:48 - Subjective Interval History: Pt was lying in bed comfortably upon my arrival. States that while he is at rest his abdominal pain is significantly improved and it only bothers him while movin g in bed. Denies any chest pains, trouble breathing, headaches, vomiting. - Exam Vitals: Temp Pulse Resp BP Pulse Ox 97.4 F L 108 20 164/95 95 05/28/19 07:15 05/28/19 07:15 05/28/19 07:15 05/28/19 07:15 05/28/19 07:15 Exam: Gen: AAOx3, NAD, Pleasant CVS: RRR, S1, S2 Lungs: CTA B/L, no rhonchi, no wheezes, symmetric expansion Abdominal: mild epigastric tenderness to palpation however no guarding Psych: answered questions appropriately, good thought processes, understood care plan - Assessment and Plan (1) Acute gallstone pancreatitis Current Visit: Yes Status: Acute Assessment and Plan: Pt presented to ED 05/25 with substernal/subxiphoid chest pain that radiated to the back MRCP consistent with peripancreatic edema concerning for acute pancreatitis Tiny filling defect noticed in distal CBD concerning for sludge/ or tiny gallstone No biliary dilatation on CT Lipase 1369, AST 238, ALT 181, total bilirubin 3.8 on admission Made NPO, IV fluids, pain medication Surgery & GI consulted Lipase, liver enzymes, bilirubin improved. Pt states pain has improved Lap choley with intraoperative cholangiogram planned for 1500 on 05/28 Remains afebrile, follow with GI/surgery (2) Cholelithiasis NOS Current Visit: Yes Status: Chronic Assessment and Plan: See plan above (3) Hypertension Current Visit: Yes Status: Chronic Assessment and Plan: Currently on Lopressor (4) Acute renal failure Current Visit: Yes Status: Suspected Assessment and Plan: SCr 1.35 on admission, elevated to 1.66, now back down to 1.20 with IV fluids/ortega - Time Spent with Patient Total time spent is greater than 50% in coordination of care (as documented) at patient's floor/unit and/or counseling patient: Internal Medicine: Result - Labs CBC & Chem 7: 05/28/19 04:11 05/28/19 04:11 Labs: Short CBC 05/28/19 Range/Units 04:11 WBC 9.6 (4.3-11.1) K/mcL Hgb 13.2 D (12.9-16.9) g/dL Hct 41.1 (37.5-50.1) % Plt Count 90 L (140-400) K/mcL BMP 05/28/19 04:11 Sodium 140 Potassium 4.0 Chloride 108 H Carbon Dioxide 24 BUN 28 H Creatinine 1.20 Glucose 113 H Calcium 7.6 L Liver Function 05/28/19 Range/Units 04:11 Total Bilirubin 4.8 H (0.3-1.0) mg/dL AST 37 (13-39) Units/L ALT 81 H (7-52) Units/L Alkaline Phosphatase 66 (34-104) Units/L Albumin 3.1 L (3.5-5.7) g/dL - ABG Interpretation ABG results: PT/INR, D-dimer PT 17.1 Seconds (9.4-12.1) H 05/27/19 01:18 - VTE Documentation of Mechanical Device: Intermittent pneumatic compression device <Herbert Bryant A - Last Filed: 05/28/19 14:09> (2) Cholelithiasis NOS Qualifiers: Cholelithiasis location: gallbladder Cholecystitis presence: without cholecystitis Biliary obstruction: without biliary obstruction Qualified Code(s): K80.20 - Calculus of gallbladder without cholecystitis without obstruction (3) Hypertension Qualifiers: Hypertension type: essential hypertension Qualified Code(s): I10 - Essential (primary) hypertension (4) Acute renal failure Qualifiers: Acute renal failure type: with acute tubular necrosis Qualified Code(s): N17.0 - Acute kidney failure with tubular necrosis <Everton Avery R - Last Filed: 05/28/19 14:58> (2) Cholelithiasis NOS Qualifiers: Cholelithiasis location: gallbladder Cholecystitis presence: without cholecystitis Biliary obstruction: without biliary obstruction Qualified Code(s): K80.20 - Calculus of gallbladder without cholecystitis without obstruction (3) Hypertension Qualifiers: Hypertension type: essential hypertension Qualified Code(s): I10 - Essential (primary) hypertension (4) Acute renal failure Qualifiers: Acute renal failure type: with acute tubular necrosis Qualified Code(s): N17.0 - Acute kidney failure with tubular necrosis
--- NOTE | 2019-05-28 11:01 | Gastroenterology Consult Note ---
<Daniella Mueller - Last Filed: 05/28/19 10:58> Date of Encounter: 05/28/19 Time of Encounter: 10:10 - Assessment and plan (1) Acute gallstone pancreatitis Current Visit: Yes Status: Acute Assessment and plan: 68 year old male who presented with abdominal pain. MRCP showed possible tiny stone in the CBD, however labs are trending down. Per Dr Tate, recommends cholecystectomy with IOC if choledocholithiasis found would need ERCP. Monitory lfTs. (2) Acute pancreatitis Current Visit: Yes Status: Acute Qualifiers: Pancreatitis type: biliary Acute pancreatitis complication: unspecified Qualified Code(s): K85.10 - Biliary acute pancreatitis without necrosis or infection (3) Cholelithiasis NOS Current Visit: Yes Status: Chronic Qualifiers: Cholelithiasis location: gallbladder Cholecystitis presence: without cholecystitis Biliary obstruction: without biliary obstruction Qualified Code(s): K80.20 - Calculus of gallbladder without cholecystitis without obstruction - Time Spent With Patient Total time spent is greater than 50% in coordination of care (as documented) at patient's floor/unit and/or counseling patient: GI History of Present Illness - Data of Consult Patient: new to practice Consult date: 05/28/19 Requesting Physician: Herbert Bryant DO - Consult Narrative Reason for consult: gallbladder pancreatitis History of present illness: Mr. Lyons is a 68 year old male with hx of HTN. He presented to ED with abdominal pain. He has been found to have gallstone pancreatitis. Mr Lyons began to have abdominal discomfort on Tuesday. Symptoms improved and then recurred worse on Tuesday. He came to ED and has been found to have gallstone pancreatitis. He has no prior hx. Denies alcohol use. No nausea or vomiting. MRCP showed layering sludge and multiple tiny gallstones in the gallbladder. Tiny filling defect in the distal CBD could potentially be a tiny stone. Patchy hepatic steatosis. Extensive peripancreatic edema. Total bilirubin 4.8 and is trending down from a high of 8.7. AST 37, ALT 81, alkaline phosphatase 66. WBC is 9.6, hemoglobin 13.2. He states pain is currently better controlled with medication. NSAIDs: Aspirin Past Med Surg Social Fam HX - Past Medical History Medical history: hypertension - Past Surgical History Surgical History: non-contributory, herniorrhaphy - Social History Smoking Status: Never smoker Smokeless Tobacco Status: No Alcohol use: occasionally Drug use: none - Family History Mother Hx Family Autoimmune Disorders: (lymphoma) Review of Systems: GI: as per [place] GENERAL: denies fever, has some chills EYES: denies yellow discoloration ENT: denies pain with swallowing or difficulty swallowing CARDIO: denies chest pain, palpitations RESP: No Shortness of breath with exertion : denies change in color of urine NEURO: weakness HEME: Denies any bruising MS: denies joint pain, joint swelling or back pain. DERM: denies rash or itching PSYCH: Denies history of anxiety or depression - Constitutional Vitals: Temp Pulse Resp BP Pulse Ox 97.4 F L 108 20 164/95 95 05/28/19 07:15 05/28/19 07:15 05/28/19 07:15 05/28/19 07:15 05/28/19 07:15 Exam: CONSTITUTIONAL:alert, no acute distress.HEAD:normocephalic.EYES:no jaundice.NECK:no obvious swelling.HEART:regular rate and rhythm, no murmurs.LUNGS:bilateral good air entry.ABDOMEN:distended, soft, tender RUQ and epigastric areas, no masses palpable, no organomegaly.RECTAL EXAM:Deferred.EXTREMITIES:no clubbing, cyanosis or edema.SKIN:pallor noted, no stigmata of chronic liver disease.NEUROLOGIC:no obvious focal defect. Results - Labs CBC & Chem 7: 05/28/19 04:11 05/28/19 04:11 Labs: Last Result 05/28/19 04:11 Calcium 7.6 L Entire Visit 05/28/19 05/28/19 04:11 04:11 Hgb 13.2 D Hct 41.1 Total Bilirubin 4.8 H AST 37 ALT 81 H Lipase 67 - ABG ABG results: PT/INR, D-dimer PT 17.1 Seconds (9.4-12.1) H 05/27/19 01:18 Consult Discharge Plan - Plan Referrals: Jay Akbar DO [Primary Care Provider] - <Xuan Tate - Last Filed: 05/28/19 14:40> Date of Encounter: 05/28/19 Time of Encounter: 13:00 - Time Spent With Patient Total time spent is greater than 50% in coordination of care (as documented) at patient's floor/unit and/or counseling patient: GI History of Present Illness - Data of Consult Requesting Physician: Herbert Bryant DO - Consult Narrative History of present illness: Mr. Lyons is a 68 year old male - Constitutional Vitals: Temp Pulse Resp BP Pulse Ox 98.3 F 107 20 166/100 95 05/28/19 14:14 05/28/19 14:14 05/28/19 14:14 05/28/19 14:14 05/28/19 14:14 Results - Labs CBC & Chem 7: 05/28/19 04:11 05/28/19 04:11 Labs: Last Result 05/28/19 04:11 Calcium 7.6 L Entire Visit 05/28/19 05/28/19 04:11 04:11 Hgb 13.2 D Hct 41.1 Total Bilirubin 4.8 H AST 37 ALT 81 H Lipase 67 - ABG ABG results: PT/INR, D-dimer PT 17.1 Seconds (9.4-12.1) H 05/27/19 01:18 - Attending Attestation I have personally performed a face to face evaluation on this patient. I have reviewed and agree with the care plan. History and Exam by me shows: Patient seen per patient feeling better than when he was admitted. Passing gas. On examination abdomen is distended. Assessment: Patient with possible gallstone pancreatitis. Elevated LFTs but improving. Recommendation: IV fluid pain control. Will need IOC at time of cholecystectomy to make sure no CBD stone
--- NOTE | 2019-05-28 12:14 | Electrocardiograph Report ---
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
--- NOTE | 2019-05-28 12:37 | Electrocardiograph Report ---
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
--- NOTE | 2019-05-28 16:32 | Anesthesia Evaluation PreOp ---
Date of Encounter: 05/28/19 Time of Encounter: 16:24 - Past History Planned Operation: Laproscopic Cholecystectomy Cardiac History: HTN Pulmonary History: Denies Any Significant HX METAL FLOW COORDINATOR History: Denies Any Significant HX Other Medical History: Other (obese) Anesthesia History: No Prior Anesthetic Complications, Past Anesthesia (Appy Hernia) Alcohol Use: occasionally Drug use: none Medications and Allergies hydroCHLOROthiazide [Hydrochlorothiazide] 25 mg PO DAILY 11/14/16 [History] EPINEPHrine [Epipen] 0.3 mg IM ONCE PRN #1 kit 02/24/17 [Rx] Aspirin [Lo-Dose Aspirin EC] 81 mg PO DAILY 05/25/19 [History] Tamsulosin HCl [Flomax] 0.4 mg PO DAILY 05/25/19 [History] Turmeric 400 mg PO DAILY 05/25/19 [History] Allergy/AdvReac Type Severity Reaction Status Date / Time No Known Allergies Allergy Verified 05/25/19 11:50 - Meds/Allergy Pre-op Review Medications Reviewed: Yes Allergies Reviewed: Yes Beta Blockers on Current Med List: Yes If Beta Blockers taken, Date/Time (Last Dose taken): 14:21 today Anesthesia Results - Labs 05/28/19 04:11 05/28/19 04:11 - Imaging EKG: report reviewed (SINUS TACHYCARDIA MINIMAL VOLTAGE CRITERIA FOR LVH, CONSIDER NORMAL VARIANT Electronically Signed On 05-28-2019 12:35:47 EDT by Manjit Ramirez) Anesthesia Exam Vital Signs/O2 Sat, Most Current Temp Pulse Resp BP Pulse Ox 98.3 F 107 20 166/100 95 05/28/19 14:14 05/28/19 14:14 05/28/19 14:14 05/28/19 14:14 05/28/19 14:14 - HEENT Pupil (Motor): Pupils equal, EOMI Mallampati: II Teeth: Poor dentition Oral Opening: Greater than 3 - METAL FLOW COORDINATOR LOC: Oriented METAL FLOW COORDINATOR Motor: Normal RUE, Normal LUE, Normal RLE, Normal LLE, Normal Face METAL FLOW COORDINATOR Sensory: Normal: RUE, LUE, RLE, LLE, Face - Cardiac Rhythm: Regular Murmur: None JVD: No Carotid Bruit: No - Pulmonary Breath Sounds: bilateral Clear Respiratory Effort: Symmetrical Anesthesia Assess/Plan ASA Score: 2 Level of consciousness: Cooperative Anesthetic Plan: General Autologous Blood: Yes Monitoring Plan: Standard Monitors Recovery Plan: PACU
[2019-05-28] MEDS ORDERED: Bupivacaine/EPI 1:200k 0.5%PF 30 ML VIAL ONE (16:37)
[2019-05-28] MEDS ORDERED: Isovue-300 50 ML VIAL ONE (16:37)
[2019-05-28] MEDS ORDERED: *HR* FentaNYL (PF) 100 MCG/2 ML VIAL ONE ×2 (16:46→18:55)
[2019-05-28] MEDS ORDERED: *HR* Propofol 200 MG/20 ML VIAL IVP ONE (16:46)
[2019-05-28] MEDS ORDERED: *HR* Midazolam HCl 2 MG/2 ML VIAL ONE (16:46)
[2019-05-28] MEDS ORDERED: Lidocaine -MPF 2% 2 ML VIAL ONE (17:02)
[2019-05-28] MEDS ORDERED: Dexamethasone 4 MG/ML VIAL ONE (17:02)
[2019-05-28] MEDS ORDERED: Ondansetron 4 MG/2 ML VIAL ONE (17:02)
[2019-05-28] MEDS ORDERED: *HR* Succinylcholine 200 MG/10 ML VIAL IVP ONE (17:02)
[2019-05-28] MEDS ORDERED: *HR* Rocuronium Bromide 50 MG/5 ML VIAL ONE (17:02)
[2019-05-28] MEDS ORDERED: Neostigmine Methylsulfate 3 MG/3 ML SYRINGE ONE (18:34)
[2019-05-28] MEDS ORDERED: Ondansetron 4 MG/2 ML VIAL IVP ONE ×2 (19:17→20:11)
[2019-05-28] MEDS ORDERED: Albuterol 2.5 MG/3 ML NEBULIZER IH ONE (19:18)
[2019-05-28] MEDS ORDERED: Albuterol 2.5 MG/3 ML NEBULIZER ONE (19:21)
[2019-05-28] MEDS: *HR* HYDROmorphone (PF) 1 MG/ML SYRINGE IVP PRN ×4 (19:23→19:38)
--- NOTE | 2019-05-28 20:02 | Operative Note ---
Date of procedure: 05/28/19 Pre-op diagnosis: Acute gallsone pancreatitis Post-op diagnosis: same (with acute cholecystitis and choledocholithiasis) Procedure: Laparoscopic Cholecystectomy with intraoperative cholangiogram Complications: none Anesthesia: GETA Surgeon: Lan Head Was there an patient support assistant present: No Estimated blood loss (cc): 75 Specimen: gallbladder Condition: stable Disposition: PACU Procedure in Detail: This 68 year-old was taken to the operating room and placed in the supine position. The anterior abdominal wall is prepped and draped in the usual sterile fashion. A 1-2 cm curvilinear incision is made in the infraumbilical area and subcutaneous tissue was dissected down to anterior rectus fascia. Fascia is grasped with a Mau clamp, stay sutures were placed in the fascia is divided. Posterior rectus fascia and peritoneum were elevated and divided in the same manner. A Mario port is inserted. Exploration of the intraabdominal cavity reveals an abnormal gallbladder but, normal appearing liver. Under direct visualization after the injection of 0.5% Marcaine the three right subcostal 5 mm ports were inserted. The patient is placed in reverse Trendelenburg position and rotated to the left. The gallbladder is grasped and retracted in cephalad direction. It is also grasped and retracted in the lateral direction. The cystic duct was carefully identified circumferentially dissected and clipped near the neck of the gallbladder. A cholecystodochotomy is made. A cholangiocatheter is placed in the cystic duct. A cholangiogram is obtained. There is obvious filling defects in CBD. Normal common hepatic duct and hepatic radicals. No filling of the duodenum is appreciated. When the cholangiogram is completed, the catheter is removed. The cystic duct is doubly clipped and divided between clips. The cystic artery is also doubly clipped and divided between clips. The gallbladder is dissected off the liver bed using electrocautery. Hemostasis was perfected using electrocautery. The gallbladder is removed from the intra-abdominal cavity using an Endo Catch bag. Copious irrigation is carried out in the intra-abdominal cavity, Alberto's pouch and the gallbladder fossa. The pneumoperitoneum was allowed to escape under direct visualization. The ports were removed also under direct visualization. The fascia at the infraumbilical incision is closed using 0 Vicryl sutures. All skin incisions are closed using 4-0 Monocryl subcuticular stitches. Steri- Strips are placed. Sterile dressing is placed. Patient tolerated procedure well was taken to the PACU in good condition. Pt will need ERCP for choledocholithiasis.
--- NOTE | 2019-05-28 20:06 | Acute Care Surgery Event Note ---
Date of Encounter: 05/28/19 Time of Encounter: 20:00 IOC + for choledocholithiasis. ERCP is necessary. Case d/w Dr. Tate. Pt will be NPO after MN.
[2019-05-28] MEDS ORDERED: Nitroglycerin 0.4 MG TAB.SUBL SL PRN (20:11)
[2019-05-28] MEDS ORDERED: *HR* Promethazine 25 MG/ML VIAL IVP PRN (20:11)
[2019-05-28] MEDS ORDERED: Naloxone 0.4 MG/ML INJ IVP PRN (20:11)
[2019-05-28] MEDS ORDERED: Ondansetron 4 MG/2 ML VIAL IVP PRN (20:11)
--- NOTE | 2019-05-28 20:16 | Anesthesia Evaluation Post Op ---
Date of Encounter: 05/28/19 Time of Encounter: 20:00 - Vital Signs Vital Signs: Vital Signs/O2 Sat/Glucose, Most Current Temp Pulse Resp BP Pulse Ox 05/28/19 20:00 99.9 F H 117 12 142/90 92 05/28/19 19:50 99.9 F H 118 14 143/92 93 05/28/19 19:40 114 12 137/91 93 05/28/19 19:30 101.8 F H 117 22 163/93 94 05/28/19 19:20 128 28 196/96 95 05/28/19 19:10 122 28 131/112 89 05/28/19 19:00 97.6 F 102 20 162/93 96 - Lungs Lungs: Clear Ascult./Percussion - Airway Airway: Non-obstructed - Cardiovascular Regular Rate - Mental Status Mental Status: Alert & Oriented, Answers Appropriately - Pain Pain Scale: 1 - Nausea Vomiting Nausea Vomiting: Unable to assess - Hydration Hydration: Ice chips - Discharge PostOp Status: Transfer Patient to floor
[2019-05-28] MEDS ORDERED: *HR* OxyCODONE/APAP 5/325 TABLET PO PRN (23:09)
[2019-05-28] MEDS: Ampicillin/Sulbactam 3,000 MG in 0.9 % Sodium Chloride Mini Bag 100 ML IVPB SCH (23:34)
[2019-05-29] MEDS: 0.9 % Sodium Chloride 1,000 ML IVC SCH (04:43)
[2019-05-29] MEDS: Ampicillin/Sulbactam 3,000 MG in 0.9 % Sodium Chloride Mini Bag 100 ML IVPB SCH ×3 (05:37→18:54)
[2019-05-29] MEDS: Nitroglycerin 1 INCH/GM PACKET TP SCH ×2 (05:46→18:43)
[2019-05-29 06:36] LABS: Basophils % 0.1 %; Hematocrit 37.6 % (37.5-50.1); Immature Granulocytes % 0.9 % (0-4); Lymphocytes # 0.5 K/mcL (0.6-4.6); Lymphocytes % 5.9 %; Mean Corpuscular HGB Conc 31.9 g/dL (31.6-35.5); Mean Corpuscular Hemoglobin 28.3 pg (28.0-33.3); Mean Corpuscular Volume 88.7 fL (83.0-100.0); Mean Platelet Volume 11.4 fL (9.4-12.4); Monocytes # 0.6 K/mcL (0.0-1.3); Monocytes % 6.8 %; Neutrophils # 7.7 K/mcL (1.6-8.9); Platelet Count 116 K/mcL (140-400); Red Blood Count 4.24 M/mcL (4.19-5.50); Red Cell Distribution Width 15.6 % (11.5-14.5); Segmented Neutrophils % 86.3 %; White Blood Count 8.9 K/mcL (4.3-11.1)
[2019-05-29 06:45] LABS: BUN/Creatinine Ratio 24 (6-26); Blood Urea Nitrogen 33 mg/dL (8-23); Carbon Dioxide 27 mEq/L (23-29); Chloride 109 mEq/L (98-107); Glucose 183 mg/dL (70-105); Osmolality,Calculated 312 (280-300); Potassium 4.2 mEq/L (3.5-5.1); Sodium 145 mEq/L (136-145); eGFR For African Americans > 60 (> 60); eGFR For Non-African Americans 52 (> 60)
[2019-05-29 06:56] LABS: Platelet Estimate Normal (Normal)
[2019-05-29 08:26] LABS: Alanine Aminotransferase 87 Units/L (7-52); Albumin/Globulin Ratio 1.2 (1.1-2.2); Alkaline Phosphatase 72 Units/L (34-104); Aspartate Amino Transferase 115 Units/L (13-39); Bilirubin,Direct 3.8 mg/dL (0.0-0.2); Bilirubin,Indirect 1.8 mg/dL (0.0-1.2); Bilirubin,Total 5.6 mg/dL (0.3-1.0); Globulin 2.6 g/dL (2.4-3.5); Total Protein 5.6 g/dL (6.4-8.9)
[2019-05-29] MEDS: Ketorolac 30 MG/ML VIAL IVP PRN (08:54)
--- NOTE | 2019-05-29 09:31 | Internal Med Progress Note ---
<Herbert Bryant - Last Filed: 05/29/19 14:09> Hospitalist Progress Note - Encounter Date of Encounter: 05/29/19 - Exam Vitals: Temp Pulse Resp BP Pulse Ox 97.2 F L 94 18 177/111 95 05/29/19 10:59 05/29/19 13:46 05/29/19 13:46 05/29/19 13:46 05/29/19 13:46 - Assessment and Plan (1) Respiratory failure with hypoxia Current Visit: Yes Status: Acute (2) Acute gallstone pancreatitis Current Visit: Yes Status: Acute (3) Cholelithiasis NOS Current Visit: Yes Status: Chronic (4) Hypertension Current Visit: Yes Status: Chronic (5) Acute renal failure Current Visit: Yes Status: Suspected (6) Choledocholithiasis Current Visit: Yes Status: Acute - Time Spent with Patient Total time spent is greater than 50% in coordination of care (as documented) at patient's floor/unit and/or counseling patient: Internal Medicine: Result - Labs CBC & Chem 7: 05/29/19 05:55 05/29/19 05:55 Labs: Short CBC 05/29/19 Range/Units 05:55 WBC 8.9 (4.3-11.1) K/mcL Hgb 12.0 L (12.9-16.9) g/dL Hct 37.6 (37.5-50.1) % Plt Count 116 L (140-400) K/mcL Neutrophils # 7.7 (1.6-8.9) K/mcL BMP 05/29/19 05:55 Sodium 145 Potassium 4.2 Chloride 109 H Carbon Dioxide 27 BUN 33 H Creatinine 1.38 H Glucose 183 H Calcium 8.0 L Liver Function 05/29/19 Range/Units 05:55 Total Bilirubin 5.6 H (0.3-1.0) mg/dL Direct Bilirubin 3.8 H (0.0-0.2) mg/dL AST 115 H (13-39) Units/L ALT 87 H (7-52) Units/L Alkaline Phosphatase 72 (34-104) Units/L Albumin 3.0 L (3.5-5.7) g/dL - ABG Interpretation ABG results: PT/INR, D-dimer PT 17.1 Seconds (9.4-12.1) H 05/27/19 01:18 - Impressions Impressions Cholangiogram,Operative 05/28/19 18:19 IMPRESSION: 1. Multiple filling defects within the common bile duct which may reflect air versus stones. Findings discussed with the operating room on May 28, 2019 at 6:20 p.m. D/ / Johnny Martinez MD / Johnny Martinez MD Interpreting Provider: Johnny Martinez MD Consult Discharge Plan - Plan Instructions: Laparoscopic Cholecystectomy (DC) Additional Instructions: General Surgical Discharge Instructions 1. No pushing, pulling, or lifting greater than 15 lbs for 4 weeks. 2. You may remove your dressings and shower beginning today, but no tub baths, soaking, or swimming for 2 weeks. 3. No driving for one weeks unless otherwise specified and then you may resume driving when you are off narcotics and are safe to react in a car. 4. Apply ice 20 minutes every hour that you are awake to your abdomen and Take Tylenol or ibuprofen every 8 hours for discomfort. If this does not relieve discomfort, you may take the as needed Percocet. Eat a small snack with pain medication as this will help reduce the risk of nausea. Take narcotics as directed. Do not take more narcotics then directed and do not share your narcotics with any other person. Do not drink alcohol while on narcotics. You can take the Zofran/ondansetron if needed for nausea or with a dose of narcotics to prevent nausea. Do not take more than 4000 mg of acetaminophen in 24 hours. 5. Take stool softeners (Colace) or a water based laxative (Miralax) while taking narcotics. You may hold for loose stools. 6. Report any fevers greater than 100.5F, increase abdominal discomfort, drainage that looks like pus, increased redness or pain at the surgical site, or any vomiting. 7. Report any pain in the calves, shortness of breath, or rapid heartbeat. 8. Follow-up in the office as directed. 9. If you were prescribed antibiotics, do not stop them without talking to your provider. Referrals: Jay Akbar DO [Primary Care Provider] - Lan Hendrix [Partnered Physician] - 06/26/19 8:30 am - Attending Attestation The history, physical exam, and medical decision making was performed by the medical student either while I was physically present and actively involved or I personally re-performed the exam and medical decision making. I have verified the accuracy of the medical student's documentation with regards to the history, physical exam findings, and medical decision making on 05/29/19. Mr Lyons is currently admitted for acute gallstone pancreatitis. He remains moderate to high risk due to potential for worsening clinical status. Mr Lyons is resting at this time. He had cholecystectomy yesterday and pain is improving. Needs ERCP today. Had low grade temp post op last night - now on Unasyn. No N/V. Feels hungry. Exam Alert Comfortable lying flat. NC . EOMI. Mucus membranes dry. Neck supple. Heart not tachy. Decreased breath sounds. Abd distended with air. No rash. Edema present bilaterally. Moves all extremities I/P 1. Gallstone pancreatitis resolved 2. Cholecystitis s/p lap geraldine 3. Choledocholitiasis - ERCP today 4. HTN Most likely will need diuresed - has hypoxic resp failure. Needs to increase activity. Further diagnoses and plan as above. <Everton Avery R - Last Filed: 05/29/19 17:00> Hospitalist Progress Note - Encounter Date of Encounter: 05/29/19 Time of Encounter: 09:31 - Subjective Interval History: Pt was sitting up in bed with two family members present upon my arrival. Complaining about being NPO but otherwise no complaints. States that his surgery was uneventful and that his abdominal pain has significantly improved since admission. Denies any CP , sob, diarrhea, headaches, and states that he is starting to get an appetite back. - Exam Vitals: Temp Pulse Resp BP Pulse Ox 97.5 F L 98 16 168/96 95 05/29/19 07:31 05/29/19 07:31 05/29/19 07:31 05/29/19 07:31 05/29/19 07:31 Exam: Gen: AAOx3, NAD, pleasant CVS: RRR, S1, S2, no edema present Lungs: CTA BL, symmetric expansion, no rhonchi, no wheezing Abdominal: Nontender, surgical incisions present dry and not oozing, slightly tense while palpating but no rebound tenderness Psych: understood care plan, answered questions appropriately, good thought process - Assessment and Plan (1) Acute gallstone pancreatitis Current Visit: Yes Status: Acute Assessment and Plan: Pt presented to ED 05/25 with substernal/subxiphoid chest pain that radiated to the back MRCP consistent with peripancreatic edema concerning for acute pancreatitis Tiny filling defect noticed in distal CBD concerning for sludge/ or tiny gallstone No biliary dilatation on CT Lipase 1369, AST 238, ALT 181, total bilirubin 3.8 on admission Made NPO, IV fluids, pain medication Surgery & GI consulted Lipase, liver enzymes, bilirubin improved. Pt states pain has improved Lap choley with intraoperative cholangiogram performed 05/28; ERCP indicated ERCP planned for 05/29 Currently on Unasyn due to fever 05/28; currently afebrile, WBC unremarkable, no clinical signs of infection Follow with GI (2) Cholelithiasis NOS Current Visit: Yes Status: Chronic Assessment and Plan: See plan as above (3) Hypertension Current Visit: Yes Status: Chronic Assessment and Plan: Continue Lopressor (4) Acute renal failure Current Visit: Yes Status: Suspected Assessment and Plan: SCr elevated on admission and initially improved with IV fluids/ortega SCr back up to 1.38 05/29; suspect this is most likely due to recent surgery and NPO Status Recheck in AM - Time Spent with Patient Total time spent is greater than 50% in coordination of care (as documented) at patient's floor/unit and/or counseling patient: Internal Medicine: Result - Labs CBC & Chem 7: 05/29/19 05:55 05/29/19 05:55 Labs: Short CBC 05/29/19 Range/Units 05:55 WBC 8.9 (4.3-11.1) K/mcL Hgb 12.0 L (12.9-16.9) g/dL Hct 37.6 (37.5-50.1) % Plt Count 116 L (140-400) K/mcL Neutrophils # 7.7 (1.6-8.9) K/mcL BMP 05/29/19 05:55 Sodium 145 Potassium 4.2 Chloride 109 H Carbon Dioxide 27 BUN 33 H Creatinine 1.38 H Glucose 183 H Calcium 8.0 L Liver Function 05/29/19 Range/Units 05:55 Total Bilirubin 5.6 H (0.3-1.0) mg/dL Direct Bilirubin 3.8 H (0.0-0.2) mg/dL AST 115 H (13-39) Units/L ALT 87 H (7-52) Units/L Alkaline Phosphatase 72 (34-104) Units/L Albumin 3.0 L (3.5-5.7) g/dL - ABG Interpretation ABG results: PT/INR, D-dimer PT 17.1 Seconds (9.4-12.1) H 05/27/19 01:18 - Impressions Impressions Cholangiogram,Operative 05/28/19 18:19 IMPRESSION: 1. Multiple filling defects within the common bile duct which may reflect air versus stones. Findings discussed with the operating room on May 28, 2019 at 6:20 p.m. D/ / Johnny Martinez MD / Johnny Martinez MD Interpreting Provider: Johnny Martinez MD - VTE Documentation of Mechanical Device: Intermittent pneumatic compression device <Herbert Bryant - Last Filed: 05/29/19 14:09> (1) Respiratory failure with hypoxia Qualifiers: Chronicity: acute Qualified Code(s): J96.01 - Acute respiratory failure with hypoxia (3) Cholelithiasis NOS Qualifiers: Cholelithiasis location: gallbladder Cholecystitis presence: without cholecystitis Biliary obstruction: without biliary obstruction Qualified Code(s): K80.20 - Calculus of gallbladder without cholecystitis without obstruction (4) Hypertension Qualifiers: Hypertension type: essential hypertension Qualified Code(s): I10 - Essential (primary) hypertension (5) Acute renal failure Qualifiers: Acute renal failure type: with acute tubular necrosis Qualified Code(s): N17.0 - Acute kidney failure with tubular necrosis <Everton Avery - Last Filed: 05/29/19 17:00> (2) Cholelithiasis NOS Qualifiers: Cholelithiasis location: gallbladder Cholecystitis presence: without cholecystitis Biliary obstruction: without biliary obstruction Qualified Co de(s): K80.20 - Calculus of gallbladder without cholecystitis without obstruction (3) Hypertension Qualifiers: Hypertension type: essential hypertension Qualified Code(s): I10 - Essential (primary) hypertension (4) Acute renal failure Qualifiers: Acute renal failure type: with acute tubular necrosis Qualified Code(s): N17.0 - Acute kidney failure with tubular necrosis
[2019-05-29] MEDS: *HR* OxyCODONE/APAP 5/325 TABLET PO PRN (10:24)
[2019-05-29] MEDS ORDERED: *HR* FentaNYL (PF) 100 MCG/2 ML VIAL ONE (13:21)
[2019-05-29] MEDS ORDERED: *HR* Propofol 200 MG/20 ML VIAL IVP ONE (13:21)
[2019-05-29] MEDS ORDERED: Lidocaine -MPF 4% 5 ML AMPUL ONE (13:23)
[2019-05-29] MEDS ORDERED: *HR* Succinylcholine 200 MG/10 ML VIAL IVP ONE ×2 (13:23)
[2019-05-29] MEDS ORDERED: Ondansetron 4 MG/2 ML VIAL ONE (13:41)
[2019-05-29] MEDS ORDERED: Lidocaine -MPF 2% 2 ML VIAL ONE (13:41)
[2019-05-29] MEDS ORDERED: Dexamethasone 4 MG/ML VIAL ONE (13:41)
--- NOTE | 2019-05-29 13:46 | Anesthesia Evaluation PreOp ---
Date of Encounter: 05/29/19 Time of Encounter: 13:43 - Past History Planned Operation: ERCP Cardiac History: HTN Pulmonary History: Denies Any Significant HX PAN RECLAIM PROCESSOR History: Denies Any Significant HX Other Medical History: Denies Any Significant HX Anesthesia History: No Prior Anesthetic Complications, Past Anesthesia Alcohol Use: occasionally Drug use: none Medications and Allergies hydroCHLOROthiazide [Hydrochlorothiazide] 25 mg PO DAILY 11/14/16 [History] EPINEPHrine [Epipen] 0.3 mg IM ONCE PRN #1 kit 02/24/17 [Rx] Aspirin [Lo-Dose Aspirin EC] 81 mg PO DAILY 05/25/19 [History] Tamsulosin HCl [Flomax] 0.4 mg PO DAILY 05/25/19 [History] Turmeric 400 mg PO DAILY 05/25/19 [History] Allergy/AdvReac Type Severity Reaction Status Date / Time No Known Allergies Allergy Verified 05/25/19 11:50 - Meds/Allergy Pre-op Review Medications Reviewed: Yes Allergies Reviewed: Yes Beta Blockers on Current Med List: No Anesthesia Results - Labs 05/29/19 05:55 05/29/19 05:55 - Imaging EKG: report reviewed (05/26/2019 SINUS TACHYCARDIA MINIMAL VOLTAGE CRITERIA FOR LVH, CONSIDER NORMAL VARIANT) Anesthesia Exam Vital Signs/O2 Sat/Glucose, Most Recent Temp Pulse Resp BP Pulse Ox 97.2 F L 96 18 159/95 95 05/29/19 10:59 05/29/19 11:48 05/29/19 10:59 05/29/19 11:48 05/29/19 10:59 Blood Glucose* 144 Height: 5'11''/1.8m Weight: 236 lbs/107.5 kg NPO (# of Hours): 8 Pain Scale: 4 Pain Scale Used: Numeric (1 - 10) - HEENT Pupil (Motor): EOMI Mallampati: II Teeth: Poor dentition Oral Opening: Greater than 3 - PAN RECLAIM PROCESSOR LOC: Oriented PAN RECLAIM PROCESSOR Motor: Normal RUE, Normal LUE, Normal RLE, Normal LLE, Normal Face PAN RECLAIM PROCESSOR Sensory: Normal: RUE, LUE, RLE, LLE, Face - Cardiac Rhythm: Regular Murmur: None - Pulmonary Breath Sounds: bilateral Clear Respiratory Effort: Symmetrical Anesthesia Assess/Plan ASA Score: 2 Level of consciousness: Cooperative, Oriented, Tranquil Anesthetic Plan: General Monitoring Plan: Standard Monitors Recovery Plan: PACU
[2019-05-29] MEDS ORDERED: Morphine Sulfate 2 MG/ML SYRINGE IVP PRN (13:52)
[2019-05-29] MEDS ORDERED: Indomethacin 50 MG SUPP.RECT RC ONE (15:15)
[2019-05-29] MEDS ORDERED: *HR* Labetalol 20 MG/4 ML SYRINGE IVP ONE (16:14)
[2019-05-29] MEDS: *HR* Labetalol 20 MG/4 ML SYRINGE IVP PRN ×2 (16:16→16:35)
--- NOTE | 2019-05-29 17:19 | Anesthesia Evaluation Post Op ---
Date of Encounter: 05/29/19 Time of Encounter: 17:20 - Vital Signs Vital Signs: Vital Signs/O2 Sat/Glucose, Most Current Temp Pulse Resp BP Pulse Ox 05/29/19 17:08 88 17 150/101 93 05/29/19 16:58 84 16 157/103 94 05/29/19 16:48 82 14 156/112 93 05/29/19 16:38 98.5 F 82 13 157/106 93 05/29/19 16:28 85 12 154/107 93 05/29/19 16:18 88 14 161/107 95 05/29/19 16:08 94 16 161/103 95 05/29/19 15:58 98.0 F 93 17 157/111 95 05/29/19 15:48 95 20 155/103 94 05/29/19 15:38 94 12 151/101 94 05/29/19 15:28 98.6 F 97 16 157/101 93 05/29/19 13:46 94 18 177/111 95 - Lungs Lungs: Clear Ascult./Percussion - Airway Airway: Non-obstructed - Cardiovascular Regular Rate - Mental Status Mental Status: Alert & Oriented, Answers Appropriately - Pain Pain Scale: 0 - Nausea Vomiting Nausea Vomiting: Not Present - Hydration Hydration: Ice chips - Discharge PostOp Status: Transfer Patient to floor
[2019-05-29] MEDS: *HR* Metoprolol 5 MG/5 ML VIAL IVP PRN (18:56)
[2019-05-30] MEDS: 0.9 % Sodium Chloride 1,000 ML IVC SCH ×2 (02:28→03:27)
[2019-05-30] MEDS: *HR* OxyCODONE/APAP 5/325 TABLET PO PRN ×2 (02:29→09:09)
[2019-05-30] MEDS: Ampicillin/Sulbactam 3,000 MG in 0.9 % Sodium Chloride Mini Bag 100 ML IVPB SCH ×4 (05:42→18:22)
[2019-05-30 06:15] LABS: Basophils % 0.3 %; Eosinophils % 0.3 %; Hematocrit 36.4 % (37.5-50.1); Hemoglobin 11.9 g/dL (12.9-16.9); Immature Granulocytes % 1.8 % (0-4); Lymphocytes # 0.8 K/mcL (0.6-4.6); Lymphocytes % 7.1 %; Mean Corpuscular HGB Conc 32.7 g/dL (31.6-35.5); Mean Corpuscular Hemoglobin 28.8 pg (28.0-33.3); Mean Corpuscular Volume 88.1 fL (83.0-100.0); Mean Platelet Volume 10.8 fL (9.4-12.4); Monocytes # 0.7 K/mcL (0.0-1.3); Monocytes % 6.5 %; Neutrophils # 9.4 K/mcL (1.6-8.9); Platelet Count 124 K/mcL (140-400); Red Blood Count 4.13 M/mcL (4.19-5.50); Red Cell Distribution Width 15.7 % (11.5-14.5); White Blood Count 11.2 K/mcL (4.3-11.1)
[2019-05-30 06:27] LABS: Alanine Aminotransferase 59 Units/L (7-52); Albumin 2.8 g/dL (3.5-5.7); Albumin/Globulin Ratio 1.2 (1.1-2.2); Alkaline Phosphatase 73 Units/L (34-104); Aspartate Amino Transferase 58 Units/L (13-39); BUN/Creatinine Ratio 30 (6-26); Bilirubin,Total 2.6 mg/dL (0.3-1.0); Blood Urea Nitrogen 33 mg/dL (8-23); Calcium 7.6 mg/dL (8.6-10.3); Carbon Dioxide 25 mEq/L (23-29); Chloride 111 mEq/L (98-107); Globulin 2.4 g/dL (2.4-3.5); Glucose 149 mg/dL (70-105); Osmolality,Calculated 308 (280-300); Potassium 3.7 mEq/L (3.5-5.1); Sodium 144 mEq/L (136-145); Total Protein 5.2 g/dL (6.4-8.9); eGFR For African Americans > 60 (> 60); eGFR For Non-African Americans > 60 (> 60)
[2019-05-30] MEDS: Ketorolac 30 MG/ML VIAL IVP PRN (06:28)
[2019-05-30] MEDS: *HR* Metoprolol 5 MG/5 ML VIAL IVP PRN ×2 (06:57→15:44)
--- NOTE | 2019-05-30 11:22 | Internal Med Progress Note ---
<Everton Avery - Last Filed: 05/30/19 15:33> Hospitalist Progress Note - Encounter Date of Encounter: 05/30/19 Time of Encounter: 11:22 - Subjective Interval History: Pt was sitting in chair watching television when I arrived. This is a change as he had been in bed everytime I've seen him before. He says that his abdominal pa in is minimal and denies any chest pains, SOB, constipation, headaches, vision changes. Admits to having some loose bowel movements early this morning but no blood in the stool. Says he is ready to get up and move around. Appetite returning. - Exam Vitals: Temp Pulse Resp BP Pulse Ox 98.2 F 92 15 200/127 94 05/30/19 11:12 05/30/19 11:12 05/30/19 11:12 05/30/19 11:12 05/30/19 11:12 Exam: Gen: AAOx3, NAD, pleasant CVS: RRR, S1, S2, no edema present Lungs: CTA BL, symmetric expansion, no rhonchi, no wheezing Abdominal: Nontender, surgical incisions present dry and not oozing, slightly tense while palpating but no rebound tenderness Psych: understood care plan, answered questions appropriately, good thought process - Assessment and Plan (1) Acute gallstone pancreatitis Current Visit: Yes Status: Acute Assessment and Plan: Pt presented to ED 05/25 with substernal/subxiphoid chest pain that radiated to the back MRCP consistent with peripancreatic edema concerning for acute pancreatitis Tiny filling defect noticed in distal CBD concerning for sludge/ or tiny gallstone No biliary dilatation on CT Lipase 1369, AST 238, ALT 181, total bilirubin 3.8 on admission Made NPO, IV fluids, pain medication Surgery & GI consulted Lipase, liver enzymes, bilirubin improved. Pt states pain has improved Lap choley with intraoperative cholangiogram performed 05/28; ERCP indicated ERCP performed 05/29 w/ stent placement-refer to report Currently on Unasyn due to fever 05/28; currently afebrile, WBC 11.2 but suspect this is reactive to procedure Fluids dc 05/30 Will follow recommendations per GI & Surgery (2) Cholelithiasis NOS Current Visit: Yes Status: Chronic Assessment and Plan: See plan as above (3) Hypertension Current Visit: Yes Status: Chronic Assessment and Plan: BP has been uncontrolled throughout hospital stay; systolic reaching 200 05/30 however pt is currently asymptomatic Continue Lopressor 5mg IVP Q6HR PRN Began Norvasc 5mg PO daily 05/30 (4) Acute renal failure Current Visit: Yes Status: Suspected Assessment and Plan: SCr 1.64 on admission; currently 1.10 on 05/30. - Time Spent with Patient Total time spent is greater than 50% in coordination of care (as documented) at patient's floor/unit and/or counseling patient: Internal Medicine: Result - Labs CBC & Chem 7: 05/30/19 05:56 05/30/19 05:56 Labs: Short CBC 05/30/19 Range/Units 05:56 WBC 11.2 H (4.3-11.1) K/mcL Hgb 11.9 L (12.9-16.9) g/dL Hct 36.4 L (37.5-50.1) % Plt Count 124 L (140-400) K/mcL Neutrophils # 9.4 H (1.6-8.9) K/mcL BMP 05/30/19 05:56 Sodium 144 Potassium 3.7 Chloride 111 H Carbon Dioxide 25 BUN 33 H Creatinine 1.10 Glucose 149 H Calcium 7.6 L Liver Function 05/30/19 Range/Units 05:56 Total Bilirubin 2.6 H (0.3-1.0) mg/dL AST 58 H (13-39) Units/L ALT 59 H (7-52) Units/L Alkaline Phosphatase 73 (34-104) Units/L Albumin 2.8 L (3.5-5.7) g/dL - ABG Interpretation ABG results: PT/INR, D-dimer PT 17.1 Seconds (9.4-12.1) H 05/27/19 01:18 - Impressions Impressions Cath/Invasive Procedure 05/29/19 15:32 IMPRESSION: Biliary stent placement. Please refer to the procedure report for further details. D/ / Kofi Jacobo MD / Kofi Jacobo MD Interpreting Provider: Kofi Jacobo MD - VTE Documentation of Mechanical Device: Intermittent pneumatic compression device Consult Discharge Plan - Plan Instructions: Laparoscopic Cholecystectomy (DC) Additional Instructions: General Surgical Discharge Instructions 1. No pushing, pulling, or lifting greater than 15 lbs for 4 weeks. 2. You may remove your dressings and shower beginning today, but no tub baths, soaking, or swimming for 2 weeks. 3. No driving for one weeks unless otherwise specified and then you may resume driving when you are off narcotics and are safe to react in a car. 4. Apply ice 20 minutes every hour that you are awake to your abdomen and Take Tylenol or ibuprofen every 8 hours for discomfort. If this does not relieve discomfort, you may take the as needed Percocet. Eat a small snack with pain medication as this will help reduce the risk of nausea. Take narcotics as directed. Do not take more narcotics then directed and do not share your narcot ics with any other person. Do not drink alcohol while on narcotics. You can take the Zofran/ondansetron if needed for nausea or with a dose of narcotics to prevent nausea. Do not take more than 4000 mg of acetaminophen in 24 hours. 5. Take stool softeners (Colace) or a water based laxative (Miralax) while taking narcotics. You may hold for loose stools. 6. Report any fevers greater than 100.5F, increase abdominal discomfort, drainage that looks like pus, increased redness or pain at the surgical site, or any vomiting. 7. Report any pain in the calves, shortness of breath, or rapid heartbeat. 8. Follow-up in the office as directed. 9. If you were prescribed antibiotics, do not stop them without talking to your provider. Referrals: Jay Akbar DO [Primary Care Provider] - Lan Hendrix [Partnered Physician] - 06/26/19 8:30 am <Iliana Brooks - Last Filed: 05/30/19 17:27> Hospitalist Progress Note - Encounter Date of Encounter: 05/30/19 - Exam Vitals: Temp Pulse Resp BP Pulse Ox 98.2 F 92 15 200/127 94 05/30/19 11:12 05/30/19 11:12 05/30/19 11:12 05/30/19 11:12 09/18/19 11:12 - Assessment and Plan (1) Respiratory failure with hypoxia Current Visit: Yes Status: Acute (2) Acute gallstone pancreatitis Current Visit: Yes Status: Acute (3) Cholelithiasis NOS Current Visit: Yes Status: Chronic (4) Hypertension Current Visit: Yes Status: Chronic (5) Acute renal failure Current Visit: Yes Status: Suspected (6) Choledocholithiasis Current Visit: Yes Status: Acute - Time Spent with Patient Total time spent is greater than 50% in coordination of care (as documented) at patient's floor/unit and/or counseling patient: Internal Medicine: Result - Labs CBC & Chem 7: 05/30/19 05:56 05/30/19 05:56 Labs: Short CBC 05/30/19 Range/Units 05:56 WBC 11.2 H (4.3-11.1) K/mcL Hgb 11.9 L (12.9-16.9) g/dL Hct 36.4 L (37.5-50.1) % Plt Count 124 L (140-400) K/mcL Neutrophils # 9.4 H (1.6-8.9) K/mcL BMP 05/30/19 05:56 Sodium 144 Potassium 3.7 Chloride 111 H Carbon Dioxide 25 BUN 33 H Creatinine 1.10 Glucose 149 H Calcium 7.6 L Liver Function 05/30/19 Range/Units 05:56 Total Bilirubin 2.6 H (0.3-1.0) mg/dL AST 58 H (13-39) Units/L ALT 59 H (7-52) Units/L Alkaline Phosphatase 73 (34-104) Units/L Albumin 2.8 L (3.5-5.7) g/dL - ABG Interpretation ABG results: PT/INR, D-dimer PT 17.1 Seconds (9.4-12.1) H 05/27/19 01:18 - Impressions Impressions Cath/Invasive Procedure 05/29/19 15:32 IMPRESSION: Biliary stent placement. Please refer to the procedure report for further details. D/ / Kofi Jacobo MD / Kofi Jacobo MD Interpreting Provider: Kofi Jacobo MD - Attending Attestation The history, physical exam, and medical decision making was performed by the medical student either while I was physically present and actively involved or I personally re-performed the exam and medical decision making. I have verified the accuracy of the medical student's documentation with regards to the history, physical exam findings, and medical decision making. Mr Lyons is admitted for acute gallstone pancreatitis. awake in chair with RN at bedside, no family present. + abd distension which he states is improving, no abd pain, n/v. no sob on room air. Denies gilliam, vision changes or cp with BP elevated this morning gen- alert, awake,appears stated age cv- reg rate and rhythm, normal s1,s2, no pitting le edema or jvd lungs- ctabl, normal resp effort on room air abd- soft, non tender, + distended, + bs neuro- AAOx3 1. Gallstone pancreatitis resolved 2. Cholecystitis s/p lap geraldine- may advance diet as tolerated per surgery 3. Choledocholitiasis s/p biliary stent- fu GI recs 4. HTN, uncontrolled, asx, home HCTZ was held in setting of pancreatitis- d/w pt and will trial norvasc + prn antihypertensive, stop IVFs, if BP does not respond to inital Norvasc dose will up titrate later today and if prn antihypertensive is not controlling him in meantime we will change to another medication prn dispo plan- pt eval pending <Everton Avery - Last Filed: 05/30/19 15:33> (2) Cholelithiasis NOS Qualifiers: Cholelithiasis location: gallbladder Cholecystitis presence: without cholecystitis Biliary obstruction: without biliary obstruction Qualified Code(s): K80.20 - Calculus of gallbladder without cholecystitis without obstruction (3) Hypertension Qualifiers: Hypertension type: essential hypertension Qualified Code(s): I10 - Essential (primary) hypertension (4) Acute renal failure Qualifiers: Acute renal failure type: with acute tubular necrosis Qualified Code(s): N17.0 - Acute kidney failure with tubular necrosis <Iliana Brooks - Last Filed: 05/30/19 17:27> (1) Respiratory failure with hypoxia Qualifiers: Chronicity: acute Qualified Code(s): J96.01 - Acute respiratory failure with hypoxia (3) Cholelithiasis NOS Qualifiers: Cholelithiasis location: gallbladder Cholecystitis presence: without cholecystitis Biliary obstruction: without biliary obstruction Qualified Code(s): K80.20 - Calculus of gallbladder without cholecystitis without obstruction (4) Hypertension Qualifiers: Hypertension type: essential hypertension Qualified Code(s): I10 - Essential (primary) hypertension (5) Acute renal failure Qualifiers: Acute renal failure type: with acute tubular necrosis Qualified Code(s): N17.0 - Acute kidney failure with tubular necrosis
[2019-05-30] MEDS ORDERED: amLODIPine 5 MG TABLET PO SCH (11:30)
--- NOTE | 2019-05-30 13:16 | AcuteCareSurgery Progress Note ---
<Bri Walker - Last Filed: 05/30/19 13:26> Date of Encounter: 05/30/19 Time of Encounter: 13:00 - Assessment and Plan (1) Acute gallstone pancreatitis Current Visit: Yes Status: Acute POD #2 Laparoscopic Cholecystectomy S/P ERCP 05/30/19 with gastroenterology May advance diet as tolerated Supportive care and pain control Ambulate hallways TID with assistance IS every 1 hour while awake IV fluids, IV antibiotics, and medical management per hospitalist team No further surgical intervention required at this time. Thank you for allowing us to participate in the care of this patient. The patient will follow-up as an outpatient and instructions entered in the note. Please call with any further questions or concerns. Subjective Patient reports: no new complaints, feels better, still having pain (Expected postoperative pain), pain is less, tolerating liquids well, flatus, bowel mov ement, afebrile, other (patient feels bloated and poor appetite, but states that this is improving) Objective Vital Signs - Last 8 Hours Temp Pulse Resp BP Pulse Ox 05/30/19 11:12 98.2 F 92 15 200/127 94 05/30/19 06:48 98.4 F 93 15 188/113 93 Intake and Output 05/29/19 05/30/19 05/30/19 23:59 07:59 15:59 Intake Total 100 / 2400 200 / 620 420 / 620 Output Total 775 / 1775 700 / 1000 300 / 1000 Balance -675 / 625 -500 / -380 120 / -380 Intake: IV Fluids 100 / 2400 200 / 200 Unasyn 3,000 MG In 0.9 % Sodium 100 / 400 200 / 200 Chloride (Mini-Bag +) 100 ML @ 200 mls/hr IVPB Q6HR [facility] Rx#: [id number] Oral 420 / 420 Output: Catheter 775 / 1775 700 / 1000 300 / 1000 Urethral (Shirley) 775 / 775 Other: Meal Breakfast Stool Size Moderate Large Stool Consistency liquid liquid soft Stool Characteristics Normal for Patient Stool Color Brown Brown # Bowel Movements 1 Weight 107.5 kg Blood Glucose* 155 Patient Weight 05/30/19 23:59 Weight 107.5 kg - General physical appearance well developed, well nourished, no distress - Eyes normal ocular movement - ENT normal mucosa, atraumatic, normocephalic - Neck Neck exam: trachea midline - Respiratory normal expansion, normal respiratory effort - Cardiovascular Cardiovascular exam: Present: RRR - Abdomen Abdomen: Present: bowel sounds present, soft, distended, tender (Expected postoperative tenderness) - Incision Incision: Present: clean and dry, intact - Genitourinary other (Shirley catheter to straight drain with clear yellow urine) - Neurologic CN 2-12 grossly intact - Psychiatric oriented to time, oriented to person, oriented to place, speech is normal, memory intact - Labs 05/30/19 05:56 05/30/19 05:56 Diabetes panel 05/30/19 Range/Units 05:56 Sodium 144 (136-145) mEq/L Potassium 3.7 (3.5-5.1) mEq/L Chloride 111 H (98-107) mEq/L Carbon Dioxide 25 (23-29) mEq/L BUN 33 H (8-23) mg/dL Creatinine 1.10 (0.70-1.30) mg/dL Glucose 149 H (70-105) mg/dL Calcium 7.6 L (8.6-10.3) mg/dL AST 58 H (13-39) Units/L ALT 59 H (7-52) Units/L Alkaline Phosphatase 73 (34-104) Units/L Albumin 2.8 L (3.5-5.7) g/dL Calcium panel 05/30/19 Range/Units 05:56 Calcium 7.6 L (8.6-10.3) mg/dL Albumin 2.8 L (3.5-5.7) g/dL Pituitary panel 05/30/19 Range/Units 05:56 Sodium 144 (136-145) mEq/L Potassium 3.7 (3.5-5.1) mEq/L Chloride 111 H (98-107) mEq/L Carbon Dioxide 25 (23-29) mEq/L BUN 33 H (8-23) mg/dL Creatinine 1.10 (0.70-1.30) mg/dL Glucose 149 H (70-105) mg/dL Calcium 7.6 L (8.6-10.3) mg/dL Adrenal panel 05/30/19 Range/Units 05:56 Sodium 144 (136-145) mEq/L Potassium 3.7 (3.5-5.1) mEq/L Chloride 111 H (98-107) mEq/L Carbon Dioxide 25 (23-29) mEq/L BUN 33 H (8-23) mg/dL Creatinine 1.10 (0.70-1.30) mg/dL Glucose 149 H (70-105) mg/dL Calcium 7.6 L (8.6-10.3) mg/dL Total Bilirubin 2.6 H (0.3-1.0) mg/dL AST 58 H (13-39) Units/L ALT 59 H (7-52) Units/L Alkaline Phosphatase 73 (34-104) Units/L Albumin 2.8 L (3.5-5.7) g/dL - VTE Documentation of Mechanical Device: Intermittent pneumatic compression device Consult Discharge Plan - Plan Instructions: Laparoscopic Cholecystectomy (DC) Additional Instructions: General Surgical Discharge Instructions 1. No pushing, pulling, or lifting greater than 15 lbs for 4 weeks. 2. You may remove your dressings and shower beginning today, but no tub baths, soaking, or swimming for 2 weeks. 3. No driving for one weeks unless otherwise specified and then you may resume driving when you are off narcotics and are safe to react in a car. 4. Apply ice 20 minutes every hour that you are awake to your abdomen and Take Tylenol or ibuprofen every 8 hours for discomfort. If this does not relieve discomfort, you may take the as needed Percocet. Eat a small snack with pain medication as this will help reduce the risk of nausea. Take narcotics as directed. Do not take more narcotics then directed and do not share your na rcotics with any other person. Do not drink alcohol while on narcotics. You can take the Zofran/ondansetron if needed for nausea or with a dose of narcotics to prevent nausea. Do not take more than 4000 mg of acetaminophen in 24 hours. 5. Take stool softeners (Colace) or a water based laxative (Miralax) while taking narcotics. You may hold for loose stools. 6. Report any fevers greater than 100.5F, increase abdominal discomfort, drainage that looks like pus, increased redness or pain at the surgical site, or any vomiting. 7. Report any pain in the calves, shortness of breath, or rapid heartbeat. 8. Follow-up in the office as directed. 9. If you were prescribed antibiotics, do not stop them without talking to your provider. Referrals: Akbar,Jay Miri, DO [Primary Care Provider] - Laverne Lan Head Petr [Partnered Physician] - 06/26/19 8:30 am - Attending Attestation For this encounter, I have reviewed the DENT[employer] MODEL [employer]ER or PA documentation, treatment plan, and medical decision making; and I have had face to face time with this patient. <Ashish Herron - Last Filed: 05/30/19 20:22> Date of Encounter: 05/30/19 - Assessment and Plan (1) Acute gallstone pancreatitis Current Visit: Yes Status: Acute Objective Vital Signs - Last 8 Hours Temp Pulse Resp BP Pulse Ox 05/30/19 19:26 98.9 F 108 17 203/99 93 05/30/19 17:48 93 203/109 05/30/19 15:23 98.1 F 104 15 204/123 95 Intake and Output 05/30/19 05/30/19 05/30/19 07:59 15:59 23:59 Intake Total 200 / 720 520 / 720 Output Total 700 / 3200 500 / 3200 2000 / 3200 Balance -500 / -2480 20 / -2480 -2000 / -2480 Intake: IV Fluids 200 / 300 100 / 300 Unasyn 3,000 MG In 0.9 % Sodium 200 / 300 100 / 300 Chloride (Mini-Bag +) 100 ML @ 200 mls/hr IVPB Q6HR [facility] Rx#: [id number] Oral 420 / 420 Output: Urine 200 / 200 Catheter 700 / 3000 300 / 3000 2000 / 3000 Other: Meal Lunch Stool Size Large Moderate Stool Consistency liquid Stool Characteristics Normal for Patient Stool Color Brown Brown # Voids 1 # Bowel Movements 2 Weight 107.5 kg Patient Weight 05/30/19 23:59 Weight 107.5 kg - Labs 05/30/19 05:56 05/30/19 05:56 Diabetes panel 05/30/19 Range/Units 05:56 Sodium 144 (136-145) mEq/L Potassium 3.7 (3.5-5.1) mEq/L Chloride 111 H (98-107) mEq/L Carbon Dioxide 25 (23-29) mEq/L BUN 33 H (8-23) mg/dL Creatinine 1.10 (0.70-1.30) mg/dL Glucose 149 H (70-105) mg/dL Calcium 7.6 L (8.6-10.3) mg/dL AST 58 H (13-39) Units/L ALT 59 H (7-52) Units/L Alkaline Phosphatase 73 (34-104) Units/L Albumin 2.8 L (3.5-5.7) g/dL Calcium panel 05/30/19 Range/Units 05:56 Calcium 7.6 L (8.6-10.3) mg/dL Albumin 2.8 L (3.5-5.7) g/dL Pituitary panel 05/30/19 Range/Units 05:56 Sodium 144 (136-145) mEq/L Potassium 3.7 (3.5-5.1) mEq/L Chloride 111 H (98-107) mEq/L Carbon Dioxide 25 (23-29) mEq/L BUN 33 H (8-23) mg/dL Creatinine 1.10 (0.70-1.30) mg/dL Glucose 149 H (70-105) mg/dL Calcium 7.6 L (8.6-10.3) mg/dL Adrenal panel 05/30/19 Range/Units 05:56 Sodium 144 (136-145) mEq/L Potassium 3.7 (3.5-5.1) mEq/L Chloride 111 H (98-107) mEq/L Carbon Dioxide 25 (23-29) mEq/L BUN 33 H (8-23) mg/dL Creatinine 1.10 (0.70-1.30) mg/dL Glucose 149 H (70-105) mg/dL Calcium 7.6 L (8.6-10.3) mg/dL Total Bilirubin 2.6 H (0.3-1.0) mg/dL AST 58 H (13-39) Units/L ALT 59 H (7-52) Units/L Alkaline Phosphatase 73 (34-104) Units/L Albumin 2.8 L (3.5-5.7) g/dL - Attending Attestation patient seen and exmained. i have reviewed all labs, imaging, and notes. i agree with the above assessment and plan.
[2019-05-30] MEDS ORDERED: amLODIPine 5 MG TABLET PO ONE (16:03)
--- NOTE | 2019-05-30 17:14 | Electrocardiograph Report ---
[employer] 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
[2019-05-30] MEDS ORDERED: Furosemide 20 MG/2 ML VIAL IVP ONE (17:29)
[2019-05-30] MEDS: *HR* Labetalol 20 MG/4 ML SYRINGE IVP PRN (21:03)
[2019-05-31] MEDS: Ampicillin/Sulbactam 3,000 MG in 0.9 % Sodium Chloride Mini Bag 100 ML IVPB SCH ×4 (00:05→17:51)
[2019-05-31 04:51] LABS: Hemoglobin 12.5 g/dL (12.9-16.9); Mean Corpuscular HGB Conc 33.8 g/dL (31.6-35.5); Mean Corpuscular Hemoglobin 28.3 pg (28.0-33.3); Mean Corpuscular Volume 83.9 fL (83.0-100.0); Mean Platelet Volume 10.7 fL (9.4-12.4); Platelet Count 129 K/mcL (140-400); Red Blood Count 4.41 M/mcL (4.19-5.50); Red Cell Distribution Width 15.7 % (11.5-14.5)
[2019-05-31 04:59] LABS: Alanine Aminotransferase 44 Units/L (7-52); Albumin 2.7 g/dL (3.5-5.7); Alkaline Phosphatase 71 Units/L (34-104); Aspartate Amino Transferase 35 Units/L (13-39); BUN/Creatinine Ratio 22 (6-26); Bilirubin,Total 2.2 mg/dL (0.3-1.0); Blood Urea Nitrogen 22 mg/dL (8-23); Calcium 7.3 mg/dL (8.6-10.3); Carbon Dioxide 24 mEq/L (23-29); Chloride 106 mEq/L (98-107); Globulin 2.6 g/dL (2.4-3.5); Glucose 181 mg/dL (70-105); Osmolality,Calculated 300 (280-300); Potassium 3.4 mEq/L (3.5-5.1); Sodium 141 mEq/L (136-145); Total Protein 5.3 g/dL (6.4-8.9); eGFR For African Americans > 60 (> 60); eGFR For Non-African Americans > 60 (> 60)
[2019-05-31] MEDS: amLODIPine 5 MG TABLET PO SCH (09:01)
--- NOTE | 2019-05-31 09:45 | Internal Med Progress Note ---
<Iliana Brooks - Last Filed: 05/31/19 12:39> Hospitalist Progress Note - Encounter Date of Encounter: 05/31/19 - Exam Vitals: Temp Pulse Resp BP Pulse Ox 98.3 F 103 20 174/99 94 05/31/19 11:19 05/31/19 11:19 05/31/19 11:19 05/31/19 11:19 05/31/19 11:19 - Assessment and Plan (1) Respiratory failure with hypoxia Current Visit: Yes Status: Acute (2) Acute gallstone pancreatitis Current Visit: Yes Status: Resolved (3) Cholelithiasis NOS Current Visit: Yes Status: Chronic (4) Hypertension Current Visit: Yes Status: Chronic (5) Acute renal failure Current Visit: Yes Status: Resolved (6) Choledocholithiasis Current Visit: Yes Status: Acute - Time Spent with Patient Total time spent is greater than 50% in coordination of care (as documented) at patient's floor/unit and/or counseling patient: Internal Medicine: Result - Labs CBC & Chem 7: 05/31/19 04:04 05/31/19 04:04 Labs: Short CBC 05/31/19 Range/Units 04:04 WBC 13.0 H (4.3-11.1) K/mcL Hgb 12.5 L (12.9-16.9) g/dL Hct 37.0 L (37.5-50.1) % Plt Count 129 L (140-400) K/mcL BMP 05/31/19 04:04 Sodium 141 Potassium 3.4 L Chloride 106 Carbon Dioxide 24 BUN 22 Creatinine 1.00 Glucose 181 H Calcium 7.3 L Liver Function 05/31/19 Range/Units 04:04 Total Bilirubin 2.2 H (0.3-1.0) mg/dL AST 35 (13-39) Units/L ALT 44 (7-52) Units/L Alkaline Phosphatase 71 (34-104) Units/L Albumin 2.7 L (3.5-5.7) g/dL - ABG Interpretation ABG results: PT/INR, D-dimer PT 17.1 Seconds (9.4-12.1) H 05/27/19 01:18 Consult Discharge Plan - Plan Instructions: Laparoscopic Cholecystectomy (DC) Additional Instructions: General Surgical Discharge Instructions 1. No pushing, pulling, or lifting greater than 15 lbs for 4 weeks. 2. You may remove your dressings and shower beginning today, but no tub baths, soaking, or swimming for 2 weeks. 3. No driving for one weeks unless otherwise specified and then you may resume driving when you are off narcotics and are safe to react in a car. 4. Apply ice 20 minutes every hour that you are awake to your abdomen and Take Tylenol or ibuprofen every 8 hours for discomfort. If this does not relieve discomfort, you may take the as needed Percocet. Eat a small snack with pain medication as this will help reduce the risk of nausea. Take narcotics as directed. Do not take more narcotics then directed and do not share your narcotics with any other person. Do not drink alcohol while on narcotics. You can take the Zofran/ondansetron if needed for nausea or with a dose of narcotics to prevent nausea. Do not take more than 4000 mg of acetaminophen in 24 hours. 5. Take stool softeners (Colace) or a water based laxative (Miralax) while taking narcotics. You may hold for loose stools. 6. Report any fevers greater than 100.5F, increase abdominal discomfort, drainage that looks like pus, increased redness or pain at the surgical site, or any vomiting. 7. Report any pain in the calves, shortness of breath, or rapid heartbeat. 8. Follow-up in the office as directed. 9. If you were prescribed antibiotics, do not stop them without talking to your provider. Referrals: Jay Akbar DO [Primary Care Provider] - Lan Hendrix [Partnered Physician] - 06/26/19 8:30 am - Attending Attestation The history, physical exam, and medical decision making was performed by the medical student either while I was physically present and actively involved or I personally re-performed the exam and medical decision making. I have verified the accuracy of the medical student's documentation with regards to the history, physical exam findings, and medical decision making. Mr Lyons is admitted for acute gallstone pancreatitis. awake in chair with RN at bedside, no family present. denies sob at rest, + with exertion, abd distension improved today, had bm this morning. no n/v, toleratin current diet. remains asx with bp elevations. gen- alert, awake,appears stated age cv- reg rate and rhythm, normal s1,s2, no pitting le edema lungs- ctabl, normal resp effort on room air abd- soft, non tender, + distended, + bs neuro- AAOx3 1. Gallstone pancreatitis resolved 2. Cholecystitis s/p lap geraldine- ADAT, cont abx 3. Choledocholitiasis s/p biliary stent- fu w Dr Tate in 6 weeks for stent removal 4. HTN, uncontrolled, asx, home HCTZ was held in setting of pancreatitis (though now confirmed to be 2/2 gallstone)- cont norvasc+ prn antihypertensive, avoid BP checks after exertion, may have to resume his HCTZ if BP elevations this afternoon dispo planning- pt rec is for SNF, will have SW d/w pt and his further; 6 min walk test today to determine if requires O2 on dc <Everton Avery - Last Filed: 05/31/19 15:24> Hospitalist Progress Note - Encounter Date of Encounter: 05/31/19 Time of Encounter: 09:43 - Subjective Interval History: Mr. Lyons was sitting in his chair watching television when I arrived. Said that he doesn't have any chest pain, sob, diarrhea, abdominal pain, constipation, vision changes, headaches. Admits to having an episode of anxiety yesterday but that has since resolved. Told me that yesterday they tried removing the catheter for a voiding trial but he was unable to urinate so is now back on the catheter. His appetite is improving. No events overnight. - Exam Vitals: Temp Pulse Resp BP Pulse Ox 99.0 F 102 20 158/92 93 05/31/19 07:24 05/31/19 07:24 05/31/19 07:24 05/31/19 07:24 05/31/19 07:24 Exam: Gen: AAOx3, NAD, pleasant CVS: RRR, S1, S2, no edema present Lungs: CTA BL, symmetric expansion, no rhonchi, no wheezing Abdominal: Nontender, surgical incisions present dry and not oozing, slightly tense while palpating but no rebound tenderness Psych: understood care plan, answered questions appropriately, good thought process - Assessment and Plan (1) Hypertension Current Visit: Yes Status: Chronic Assessment and Plan: BP has been uncontrolled throughout hospital stay; systolic reaching 200 05/30 however pt is currently asymptomatic Continue Lopressor 5mg IVP Q6HR PRN Began Norvasc 10mg PO daily 05/30 Was given one time dose of Lasix 20mg IVP 05/30 and nursing states he made 700ml of urine in ortega; states BP systolic down in 150s/160s last night Goal will be 140/90-160/90; will monitor throughout the day and overnight to see if he responds to treatment (2) Acute gallstone pancreatitis Current Visit: Yes Status: Resolved Assessment and Plan: Pt presented to ED 05/25 with substernal/subxiphoid chest pain that radiated to the back MRCP consistent with peripancreatic edema concerning for acute pancreatitis Tiny filling defect noticed in distal CBD concerning for sludge/ or tiny gallstone No biliary dilatation on CT Lipase 1369, AST 238, ALT 181, total bilirubin 3.8 on admission Made NPO, IV fluids, pain medication Surgery & GI consulted Lipase, liver enzymes, bilirubin improved. Pt states pain has improved Lap choley with intraoperative cholangiogram performed 05/28; ERCP indicated ERCP performed 05/29 w/ stent placement-refer to report Currently on Unasyn due to fever 05/28; currently afebrile, WBC 13 but suspect this is reactive to procedure-- has been on 4 days of abx. Plan on empirically f inishing treatment for 3 more days. Fluids dc 05/30 Fair to say pt is deconditioned s/p lap choley & ERCP-- will need to obtain 6 minute walk test and discuss with social work regarding placement after discharge. Pt will need to follow up with GI in 6 weeks for biliary stent removal Appreciate surgery and GI recommendations (3) Cholelithiasis NOS Current Visit: Yes Status: Chronic Assessment and Plan: see plan above (4) Acute renal failure Current Visit: Yes Status: Resolved Assessment and Plan: SCr 1.64 on admission; currently 1.00 on 05/31. - Time Spent with Patient Total time spent is greater than 50% in coordination of care (as documented) at patient's floor/unit and/or counseling patient: Internal Medicine: Result - Labs CBC & Chem 7: 05/31/19 04:04 05/31/19 04:04 Labs: Short CBC 05/31/19 Range/Units 04:04 WBC 13.0 H (4.3-11.1) K/mcL Hgb 12.5 L (12.9-16.9) g/dL Hct 37.0 L (37.5-50.1) % Plt Count 129 L (140-400) K/mcL BMP 05/31/19 04:04 Sodium 141 Potassium 3.4 L Chloride 106 Carbon Dioxide 24 BUN 22 Creatinine 1.00 Glucose 181 H Calcium 7.3 L Liver Function 05/31/19 Range/Units 04:04 Total Bilirubin 2.2 H (0.3-1.0) mg/dL AST 35 (13-39) Units/L ALT 44 (7-52) Units/L Alkaline Phosphatase 71 (34-104) Units/L Albumin 2.7 L (3.5-5.7) g/dL - ABG Interpretation ABG results: PT/INR, D-dimer PT 17.1 Seconds (9.4-12.1) H 05/27/19 01:18 - VTE Documentation of Mechanical Device: Intermittent pneumatic compression device <Iliana Brooks - Last Filed: 05/31/19 12:39> (1) Respiratory failure with hypoxia Qualifiers: Chronicity: acute Qualified Code(s): J96.01 - Acute respiratory failure with hypoxia (3) Cholelithiasis NOS Qualifiers: Cholelithiasis location: gallbladder Cholecystitis presence: without cholecystitis Biliary obstruction: without biliary obstruction Qualified Code(s): K80.20 - Calculus of gallbladder without cholecystitis without obstruction (4) Hypertension Qualifiers: Hypertension type: essential hypertension Qualified Code(s): I10 - Essential (primary) hypertension (5) Acute renal failure Qualifiers: Acute renal failure type: with acute tubular necrosis Qualified Code(s): N17.0 - Acute kidney failure with tubular necrosis <Everton Avery - Last Filed: 05/31/19 15:24> (1) Hypertension Qualifiers: Hypertension type: essential hypertension Qualified Code(s): I10 - Essential (primary) hypertension (3) Cholelithiasis NOS Qualifiers: Cholelithiasis location: gallbladder Cholecystitis presence: without cholecystitis Biliary obstruction: without biliary obstruction Qualified Code (s): K80.20 - Calculus of gallbladder without cholecystitis without obstruction (4) Acute renal failure Qualifiers: Acute renal failure type: with acute tubular necrosis Qualified Code(s): N17.0 - Acute kidney failure with tubular necrosis
[2019-05-31] MEDS: *HR* Labetalol 20 MG/4 ML SYRINGE IVP PRN ×2 (12:45→17:00)
[2019-05-31] MEDS: *HR* OxyCODONE/APAP 5/325 TABLET PO PRN (14:26)
[2019-05-31] MEDS: hydroCHLOROthiazide 25 MG TABLET PO SCH (17:00)
[2019-06-01] MEDS: Ampicillin/Sulbactam 3,000 MG in 0.9 % Sodium Chloride Mini Bag 100 ML IVPB SCH ×3 (00:15→11:44)
[2019-06-01 05:54] LABS: Hematocrit 36.8 % (37.5-50.1); Hemoglobin 12.3 g/dL (12.9-16.9); Mean Corpuscular HGB Conc 33.4 g/dL (31.6-35.5); Mean Corpuscular Volume 86.8 fL (83.0-100.0); Mean Platelet Volume 11.3 fL (9.4-12.4); Platelet Count 134 K/mcL (140-400); Red Blood Count 4.24 M/mcL (4.19-5.50); Red Cell Distribution Width 15.7 % (11.5-14.5); White Blood Count 14.8 K/mcL (4.3-11.1)
[2019-06-01 06:16] LABS: BUN/Creatinine Ratio 20 (6-26); Blood Urea Nitrogen 20 mg/dL (8-23); Calcium 7.6 mg/dL (8.6-10.3); Carbon Dioxide 27 mEq/L (23-29); Chloride 100 mEq/L (98-107); Glucose 178 mg/dL (70-105); Osmolality,Calculated 293 (280-300); Potassium 3.3 mEq/L (3.5-5.1); Sodium 138 mEq/L (136-145); eGFR For African Americans > 60 (> 60); eGFR For Non-African Americans > 60 (> 60)
[2019-06-01] MEDS: *HR* Labetalol 20 MG/4 ML SYRINGE IVP PRN ×2 (06:51→11:42)
[2019-06-01] MEDS: amLODIPine 5 MG TABLET PO SCH (07:55)
[2019-06-01] MEDS: hydroCHLOROthiazide 25 MG TABLET PO SCH (07:55)
[2019-06-01 13:24] VITALS: BP 153/94
[2019-06-01] MEDS ORDERED: FLU Vac QV 19-20 (6Month+)/PF 0.5 ML SYRINGE IM ONE (13:25)
--- NOTE | 2019-06-01 13:45 | Physician Discharge Referral ---
<Jesus Haynes - Last Filed: 06/01/19 13:56> Home Health/Hosp Referral Info Transfer to: Home Health Attending Provider: Todd Provider in Charge Post Discharge: PCP - Diagnosis (1) Acute gallstone pancreatitis Priority: Primary Status: Resolved (2) Hypertension Priority: Secondary Status: Chronic (3) Acute renal failure Priority: Secondary Status: Resolved - Respiratory Orders None Smoking Cessation: Smoking cessation has been advised. For more information, call the [place] Tobacco Quit Line at 2-387-QSXV-NOW. - Diet/Nutrition Diet/Nutrition Orders: No Added Salt (LISANDRO) - Activity Activity Orders: Up ad marsha - Services Needed Following services are medically necessary services: Nursing, Home Health Aide, Physical Therapy, Occupational Therapy - Transfer Medications Prescriptions: Amoxicillin/Clavulanate [Augmentin] 875 mg PO BIDWM 2 Days #5 tablet Transmission Status: Received by [facility] #[id number] amLODIPine [Norvasc] 10 mg PO DAILY 7 Days #14 tablet Transmission Status: Received by [facility] #[id number] Home Medications: hydroCHLOROthiazide [Hydrochlorothiazide] 25 mg PO DAILY 11/14/16 [History] EPINEPHrine [Epipen] 0.3 mg IM ONCE PRN #1 kit 02/24/17 [Rx] Aspirin [Lo-Dose Aspirin EC] 81 mg PO DAILY 05/25/19 [History] Tamsulosin HCl [Flomax] 0.4 mg PO DAILY 05/25/19 [History] Turmeric 400 mg PO DAILY 05/25/19 [History] Amoxicillin/Clavulanate [Augmentin] 875 mg PO BIDWM 2 Days #5 tablet 06/01/19 [Rx] amLODIPine [Norvasc] 10 mg PO DAILY 7 Days #14 tablet 06/01/19 [Rx] Allergies/Adverse Reactions: Allergy/AdvReac Type Severity Reaction Status Date / Time No Known Allergies Allergy Verified 05/25/19 11:50 Certification: Further, I certify that my clinical findings support that this patient is homebound (i.e. absences from home require considerable and taxing effort and are for medical reasons or confucianism services or infrequently or short duration when for other reasons) because: Homebound Reason: Post-surgery restriction and or conditions limit ability to leave home Attestation: My signature below is to certify that this patient is under my care and that I, or nurse practitioner, or a physician's preschool teacher's assistant working with me, has a [id number] encounter with this patient. <Iliana Brooks - Last Filed: 06/01/19 15:42> - Diagnosis (1) Acute gallstone pancreatitis Status: Resolved (2) Cholelithiasis NOS Priority: Secondary Status: Resolved (3) Hypertension Status: Chronic (4) Acute renal failure Status: Resolved (5) Choledocholithiasis Status: Acute - Respiratory Orders Smoking Cessation: Smoking cessation has been advised. For more information, call the [place] Tobacco Quit Line at 8-289-HCKZNOW. Other Treatments: ortega catheter routine care Certification: Further, I certify that my clinical findings support that this patient is homebound (i.e. absences from home require considerable and taxing effort and are for medical reasons or confucianism services or infrequently or short duration when for other reasons) because: Attestation: My signature below is to certify that this patient is under my care and that I, or nurse practitioner, or a physician's preschool teacher's assistant working with me, has a [id number] encounter with this patient.
--- NOTE | 2019-06-01 13:45 | Discharge Summary ---
<Iliana Brooks - Last Filed: 06/01/19 15:42> Date of Encounter: 06/01/19 - Discharge Diagnosis (1) Acute gallstone pancreatitis Status: Resolved (2) Cholelithiasis NOS Status: Resolved Qualifiers: Cholelithiasis location: gallbladder Cholecystitis presence: without cholecystitis Biliary obstruction: without biliary obstruction Qualified Code(s): K80.20 - Calculus of gallbladder without cholecystitis without obstruction (3) Hypertension Status: Chronic Qualifiers: Hypertension type: essential hypertension Qualified Code(s): I10 - Essential (primary) hypertension (4) Acute renal failure Status: Resolved Qualifiers: Acute renal failure type: with acute tubular necrosis Qualified Code(s): N17.0 - Acute kidney failure with tubular necrosis (5) Choledocholithiasis Status: Acute Hospital course: Mr. Lyons is a 68 year old male - Time Spent with Patient Total time spent providing and/or coordinating discharge services: - Discharge Medications Prescriptions: New Amoxicillin/Clavulanate [Augmentin] 875 mg PO BIDWM 2 Days #5 tablet amLODIPine [Norvasc] 10 mg PO DAILY 7 Days #14 tablet Continued hydroCHLOROthiazide [Hydrochlorothiazide] 25 mg PO DAILY EPINEPHrine [Epipen] 0.3 mg IM ONCE PRN #1 kit PRN Reason: swelling of lip Turmeric 400 mg PO DAILY Aspirin [Lo-Dose Aspirin EC] 81 mg PO DAILY Tamsulosin HCl [Flomax] 0.4 mg PO DAILY Home Medications: hydroCHLOROthiazide [Hydrochlorothiazide] 25 mg PO DAILY 11/14/16 [History] EPINEPHrine [Epipen] 0.3 mg IM ONCE PRN #1 kit 02/24/17 [Rx] Aspirin [Lo-Dose Aspirin EC] 81 mg PO DAILY 05/25/19 [History] Tamsulosin HCl [Flomax] 0.4 mg PO DAILY 05/25/19 [History] Turmeric 400 mg PO DAILY 05/25/19 [History] Amoxicillin/Clavulanate [Augmentin] 875 mg PO BIDWM 2 Days #5 tablet 06/01/19 [Rx] amLODIPine [Norvasc] 10 mg PO DAILY 7 Days #14 tablet 06/01/19 [Rx] Allergies/Adverse Reactions: Allergy/AdvReac Type Severity Reaction Status Date / Time No Known Allergies Allergy Verified 05/25/19 11:50 Date of admission: 05/26/19 16:08 Primary care physician: Jay Akbar DO Consults: 05/26/19 08:55 Consult to Surgery [CONS] Routine Consulting Provider: Acute Care Surgery Reason for Consult: Gallstone pancreatitis Call Completed: Yes 05/27/19 15:20 Consult to Gastroenterology [CONS] Routine Consulting Provider: Gastroenterology Zahida Reason for Consult: Gallstone pancreatitis - have been discussing with service all weekend Call Completed: Yes 05/29/19 11:40 Consult to Occupational Therapy [CONS] Routine Comment: Evaluate, develop and implement POC Reason for Consult: deconditioning, bmat 3 Does patient have active BEDREST order?: No Is patient medically & hemodynamically stable?: Yes Patient assessed for mobility or mobilized this visit?: No Consult to Physical Therapy [CONS] Routine Comment: Evaluate, develop and implement POC Reason for Consult: deconditioning, bmat 3 Does patient have active BEDREST order?: No Is patient medically & hemodynamically stable?: Yes Patient assessed for mobility or mobilized this visit?: No - Constitutional Vitals: Temp Pulse Resp BP Pulse Ox 98.0 F 95 15 153/94 93 06/01/19 13:06 06/01/19 13:06 06/01/19 13:06 06/01/19 13:24 06/01/19 13:06 - Patient Status Disposition: Home Health Service Condition: Good - Discharge Instructions Instructions: Pancreatitis (DC), Ortega Catheter Placement and Care (DC), Laparoscopic Cholecystectomy (DC), Urinary Leg Bag (GEN) Follow Up With: Melo Coronado MD [Partnered Physician] - 06/12/19 9:30 am Lan Hendrix [Partnered Physician] - 06/26/19 8:30 am Additional Instructions: General Surgical Discharge Instructions 1. No pushing, pulling, or lifting greater than 15 lbs for 4 weeks. 2. You may remove your dressings and shower beginning today, but no tub baths, soaking, or swimming for 2 weeks. 3. No driving for one weeks unless otherwise specified and then you may resume driving when you are off narcotics and are safe to react in a car. 4. Apply ice 20 minutes every hour that you are awake to your abdomen and Take Tylenol or ibuprofen every 8 hours for discomfort. If this does not relieve discomfort, you may take the as needed Percocet. Eat a small snack with pain medication as this will help reduce the risk of nausea. Take narcotics as directed. Do not take more narcotics then directed and do not share your narcotics with any other person. Do not drink alcohol while on narcotics. You can take the Zofran/ondansetron if needed for nausea or with a dose of narcotics to prevent nausea. Do not take more than 4000 mg of acetaminophen in 24 hours. 5. Take stool softeners (Colace) or a water based laxative (Miralax) while taking narcotics. You may hold for loose stools. 6. Report any fevers greater than 100.5F, increase abdominal discomfort, drainage that looks like pus, increased redness or pain at the surgical site, or any vomiting. 7. Report any pain in the calves, shortness of breath, or rapid heartbeat. 8. Follow-up in the office as directed. 9. If you were prescribed antibiotics, do not stop them without talking to your provider. - Attending Attestation I examined this patient and my medical decision-making was reviewed with the Resident Physician Dr Haynes. I agree with the documented findings, disposition and treatment plan as described except to the extent set forth below. Mr Lyons is admitted for acute gallstone pancreatitis. He is medically stable for dc to home with [facility] awake, very eager for discharge, feels uncomfortable being in hospital, not sleeping. He has no abd pain, is tolerating diet, had formed bm this morning and has continued ortega cath after failing voiding trial. Discussed dc plan in detail including meds on dc, ortega cath with outpt urology eval, gi follow up for stent removal, surg follow up and need for further bp monitoring and med adjustments. He is aware of wbc elevation and will fu with pcp, discussed warning signs of infection. Answered all questions and he verbalized good understanding of plan gen- alert, awake,appears stated age cv- reg rate and rhythm, normal s1,s2, no pitting le edema lungs- ctabl, normal resp effort on room air abd- soft, non tender, minimally distended, + bs neuro- AAOx3 1. Gallstone pancreatitis resolved 2. Cholecystitis s/p lap geraldine- complete oral abx course 3. Choledocholitiasis s/p biliary stent- fu w Dr Tate in 6 weeks for stent removal 4. HTN, improved control asx, home HCTZ + new norvasc, fu with PCP for further control, suspect he runs quite high at home and goal was 160/90 upon dc 5. Leukocytosis without fever and with significant clinical improvement- outpt cbc in upcoming week dispo planning- pt rec was actually for HHC not SNF, he will dc to home with , HHC, ortega cath and outpt fu already scheduled time spent on dc 40 min <Jesus Haynes - Last Filed: 06/01/19 19:28> - NOTES TO OUTPATIENT PROVIDER Notes to Outpatient Provider: Mr. Lyons was admitted and treated for acute gallstone pancreatitis with COPY cholecystectomy and ERCP with stent placement. He was further managed for hypertension and physical deconditioning. He was discharged to home with home health in stable condition. His only medication change was the addition of Norvasc 10 mg daily as well as two further days of Augmentin by mouth. Recommend reassessment of blood pressure and outpatient setting with medication reconciliation at the discretion of PCP. Date of Encounter: 06/01/19 Time of Encounter: 13:45 - Discharge Diagnosis (1) Acute gallstone pancreatitis Priority: Primary Status: Resolved Assessment and Plan: Pt presented to ED 05/25 with substernal/subxiphoid chest pain that radiated to the back MRCP consistent with peripancreatic edema concerning for acute pancreatitis Tiny filling defect noticed in distal CBD concerning for sludge/ or tiny gallstone No biliary dilatation on CT Lipase 1369, AST 238, ALT 181, total bilirubin 3.8 on admission Made NPO, IV fluids, pain medication Surgery & GI consulted Lipase, liver enzymes, bilirubin improved. Pt states pain has improved Lap choley with intraoperative cholangiogram performed 05/28; ERCP indicated ERCP performed 05/29 w/ stent placement-refer to report Currently on Unasyn due to fever 05/28; currently afebrile, WBC 13 but suspect this is reactive to procedure-- has been on 4 days of abx. Plan on empirically finishing treatment for 3 more days. Fluids dc 05/30 Fair to say pt is deconditioned s/p lap choley & ERCP-- will need to obtain 6 minute walk test and discuss with social work regarding placement after discharge. Pt will need to follow up with GI in 6 weeks for biliary stent removal 6 minute walk negative, completed 5 days of Unasyn, will be discharged with 2 further days of Augmentin, will go home with home health and PT/OT/aide and nursing, is being discharged with Ortega due to urinary retention, has GI and urology follow-up scheduled (2) Hypertension Priority: Secondary Status: Chronic Assessment and Plan: BP has been uncontrolled throughout hospital stay; systolic reaching 200 05/30 however pt is currently asymptomatic Continue Lopressor 5mg IVP Q6HR PRN Began Norvasc 10mg PO daily 05/30 Was given one time dose of Lasix 20mg IVP 05/30 and nursing states he made 700ml of urine in ortega; states BP systolic down in 150s/160s last night Goal will be 140/90-160/90; will monitor throughout the day and overnight to see if he responds to treatment Patient's blood pressure stabilized on Norvasc and hydrochlorothiazide, he will be discharged with both to follow-up with PCP and have medications reconciled Qualifiers: Hypertension type: essential hypertension Qualified Code(s): I10 - Essential (primary) hypertension (3) Acute renal failure Priority: Secondary Status: Resolved Assessment and Plan: Patient presented with DILAN, this gradually resolved over hospitalization Qualifiers: Acute renal failure type: with acute tubular necrosis Qualified Code(s): N17.0 - Acute kidney failure with tubular necrosis Hospital course: Mr. Lyons is a 68 year old male who was admitted for acute gallstone pancreatitis. He was admitted and treated with supportive care, surgery consultation. He underwent laparoscopic cholecystectomy and ERCP with stent placement without incident. During the recovery he developed hypertension and urinary retention. Hypertension was treated with Norvasc and hydrochlorothiazide, urinary retention was treated with Ortega. He also developed physical deconditioning. He will be discharged in stable condition, to home with home health, urology and GI follow-up, Norvasc and hydrochlorothiazide as well as his other home medications, two further days Augmentin. Discharge discussed with: patient - Time Spent with Patient Total time spent providing and/or coordinating discharge services: Date of admission: 05/26/19 16:08 Primary care physician: Jay Akbar DO Consults: 05/26/19 08:55 Consult to Surgery [CONS] Routine Consulting Provider: Acute Care Surgery Reason for Consult: Gallstone pancreatitis Call Completed: Yes 05/27/19 15:20 Consult to Gastroenterology [CONS] Routine Consulting Provider: Gastroenterology Zahida Reason for Consult: Gallstone pancreatitis - have been discussing with service all weekend Call Completed: Yes 05/29/19 11:40 Consult to Occupational Therapy [CONS] Routine Comment: Evaluate, develop and implement POC Reason for Consult: deconditioning, bmat 3 Does patient have active BEDREST order?: No Is patient medically & hemodynamically stable?: Yes Patient assessed for mobility or mobilized this visit?: No Consult to Physical Therapy [CONS] Routine Comment: Evaluate, develop and implement POC Reason for Consult: deconditioning, bmat 3 Does patient have active BEDREST order?: No Is patient medically & hemodynamically stable?: Yes Patient assessed for mobility or mobilized this visit?: No Discharging clinician: Jesus Haynes Anticipated date of discharge: 06/01/19 - Constitutional Vitals: Temp Pulse Resp BP Pulse Ox 98.0 F 95 15 153/94 93 06/01/19 13:06 06/01/19 13:06 06/01/19 13:06 06/01/19 13:24 06/01/19 13:06 General appearance: Present: A&O X 3 Exam: Gen: AAOx3, NAD, pleasant CVS: RRR, S1, S2, no edema present Lungs: CTA BL, symmetric expansion, no rhonchi, no wheezing Abdominal: Nontender, surgical incisions present dry and not oozing, slightly tense while palpating but no rebound tenderness Psych: understood care plan, answered questions appropriately, good thought process - Patient Status Functional capacity at discharge: independent ambulation Overall status at discharge: patient is progressing back to baseline - Diet and Activity Activity: as per physical therapy Diet: advance to your usual diet - VTE Documentation of Mechanical Device: Intermittent pneumatic compression device
[2019-06-02] MEDS ORDERED: hydroCHLOROthiazide 25 MG TABLET PO SCH (09:00)
== END 2019-06-01 15:48 | disposition home health service (06) | DRG 417 ==
LOC: EMEROOARM 09:54 → 3ANU 09:54 → SUATTDRO 13:50 → 3ANU 14:55 → SUATTDRO 05-26 16:08
PROVIDERS: ADMIT Internal Medicine; ATTEND Internal Medicine